=== PATIENT | male | born 1980 | race Caucasian/White ===

== ENCOUNTER 2020-06-18 07:50 | Inpatient (IN) ==
[2020-06-18] MEDS ORDERED: OPTIRAY 320 125ml IV ONE (08:15)
--- NOTE | 2020-06-18 08:28 | CT Scan Report ---
CT ANGIOGRAM OF THE CHEST CLINICAL HISTORY: Atypical chest pain. History of DVT. Possible pulmonary embolism COMPARISON STUDY: No previous studies for comparison. TECHNIQUE: Following the IV administration of 118 mL of Optiray-320, CT angiogram of the thorax was p erformed from the thoracic inlet to the lung bases utilizing the pulmonary embolus protocol. Images a re reviewed in the axial, sagittal, and coronal planes. IV contrast was administered without complica tion. MIP imaging was performed. A dose lowering technique was utilized adhering to the principles o f ALARA. CT DOSE: 690.04 mGy.cm FINDINGS: No pathologically enlarged axillary mediastinal or hilar lymph nodes were visualized. There was no evidence of thoracic aortic dilatation. There are no definite pulmonary artery filling defects to indicate acute pulmonary embolism. Evaluati on of the left lower lobe pulmonary artery branches are moderately limited due to respiratory motion artifact. No pleural effusions are visualized. There was no evidence of focal pulmonary consolidation. There are a few scattered granulomatous calci fications IMPRESSION: 1. Motion degraded study 2. No evidence of acute pulmonary embolism given the clinical limitations of the study 2. No evidence of acute parenchymal consolidation ACT 112: Negative or not required by law. Electronically signed by: Terrance Knott M.D. 06/18/2020 8:27 AM
[2020-06-18] MEDS ORDERED: SODIUM CHLORIDE 0.9% 1000ML 1,000 ML IV ONE ×2 (08:43→12:41)
[2020-06-18 08:44] LABS: Basophils # (auto) 0.02 K/uL (0-0.2); Basophils % (auto) 0.1 %; Eosinophils % (auto) 1.9 %; Hematocrit (blood only) 41.6 % (42-52); Hemoglobin 13.5 g/dL (14.0-18.0); Immature Granulocytes # (auto) 0.08 K/uL (0.00-0.02); Immature Granulocytes % (auto) 0.4 %; Lymphocytes % (auto) 8.2 %; Mean Corpuscular Hgb Conc 32.5 g/dL (32-36); Mean Corpuscular Volume 86.3 fL (80-100); Mean Platelet Volume 10.1 fL (7.4-10.4); Monocytes # (auto) 0.97 K/uL (0.11-0.59); Monocytes % (auto) 4.7 %; Neutrophils # (auto) 17.47 K/uL (1.4-6.5); Neutrophils % (auto) 84.7 %; Platelet Count 372 K/uL (130-400); RDW Coefficient of Variation 14.3 % (11.5-14.5); RDW Standard Deviation 44.7 fL (36.4-46.3); Red Blood Count 4.82 M/uL (4.7-6.1); White Blood Count 20.64 K/uL (4.8-10.8)
[2020-06-18 08:48] LABS: iSTAT Creatinine 2.2 mg/dl (0.6-1.3); iSTAT Ionized Calcium 1.21 mmol/l (1.12-1.32); iSTAT Potassium 4.3 mmol/L (3.3-5.0)
[2020-06-18 08:58] LABS: INR 1.1 (0.9-1.1); Partial Thromboplastin Ratio 1.2; Partial Thromboplastin Time 32.9 Seconds (21.0-31.0); Prothrombin Time 11.8 Seconds (9.0-12.0)
--- NOTE | 2020-06-18 09:24 | Ultrasound Report ---
US venous doppler LE LT CLINICAL HISTORY: Left leg pain. Chest pain. CT angiography the chest limited due to motion artifact COMPARISON STUDY: No previous studies for comparison. FINDINGS: There is extensive left lower extremity DVT extending from the common femoral vein to the c zeke. IMPRESSION: Extensive left lower extremity DVT extending from the common femoral vein to the proximal calf veins. ACT 112: Negative or not required by law. Electronically signed by: Terrance Knott M.D. 06/18/2020 9:23 AM
[2020-06-18 09:27] LABS: Alanine Aminotransferase 14 U/L (12-78); Albumin Level 3.8 gm/dl (3.4-5.0); Aspartate Aminotransferase 14 U/L (15-37); BUN Creatinine Ratio 9.3 (10-20); Blood Urea Nitrogen 21 mg/dl (7-18); Carbon Dioxide 24 mmol/L (21-32); Chloride 101 mmol/L (98-107); Creatinine Clr Calc Pharmacy 56.4 ml/min; Est GFR (African American) 41.9; Est GFR (Non-African American) 36.1; Glucose 118 mg/dl (70-99); Magnesium 1.9 mg/dl (1.8-2.4); Potassium 4.2 mmol/L (3.5-5.1); Sodium 138 mmol/L (136-145)
[2020-06-18 09:31] LABS: Albumin Globulin Ratio 0.8 (0.9-2); Alkaline Phosphatase 92 U/L (45-117); Bilirubin,Total 0.7 mg/dl (0.2-1); Total Protein 8.8 gm/dl (6.4-8.2); Troponin I < 0.015 ng/ml (0-0.045)
[2020-06-18] MEDS ORDERED: HEPARIN SOD 5,000 UNIT/0.5 ML VIAL ONE (10:25)
[2020-06-18] MEDS ORDERED: HEPARIN 25000 UNIT/500 ML D5W IV ONE (10:25)
[2020-06-18] MEDS ORDERED: DAPTOMYCIN CONSULT ACTIVE PRN (10:33)
--- NOTE | 2020-06-18 10:55 | Consultation ---
Date of Consultation June 18, 2020 Assessment & Plan (1) Deep vein thrombosis (DVT) of left lower extremity: (2) SIRS (systemic inflammatory response syndrome): (3) Lactic acidosis: (4) Acute renal failure superimposed on stage 3 chronic kidney disease: (5) C. difficile colitis: This is a 39 yr old M who has a significant PMN of renal agenesis, hx of glomerulonephritis with ckd-3 baseline cr 1.6-1.7 followed by [facility] nephrology, gout, JOHN, hx of DVT at age 15 who presents to ED 2/2 to worsened LLE pain with concern for DVT x 2 days. Patient with evidence of extensive left lower extremity DVT extending from common femoral vein to tibial veins. Pt with prior hx of dvt (RLE age 15). Prior coag panel work up negative. Exam reveals dusky LLE with cool/mottled LLE. Case was discussed with brewmaster Dr. Gibson who peripherally evaluated images concerning for complete occlusion recommending urgent transfer to tertiary facility for thrombectomy. Clotting disorder panel ordered and IV heparin initiated. Patient does meet SIRS criteria on evaluation due to hypotension, tachycardia and leukocytosis upon arrival. Patient completed course of oral vancomycin 125 mg 4 times daily on 06/17 for outpatient diagnosis of C. difficile. He does continue to have lower abdominal cramping with 2 loose bowel movements daily. Infection is not totally ruled out but SIRS likely in setting of extensive DVT. PE was ruled out via CTA. Patient did undergo CTA in ER prior to renal function evaluation. Creatinine worse than baseline at 2.2 today (baseline 1.6-1.7). IV fluid ordered for hydration. Other than more sedentary due to underlying C. difficile and working from home, patient has no clear etiology for DVT and this will need to be further worked up. He has no family history of clotting disorder. Placed on broad-spectrum IV antibiotics until infection ruled out. Blood cultures are pending. Obtain CT abd/pelvis and repeat Lactic acid Case was discussed with family at bedside. Case also discussed with ER physician Dr. De Souza who will arrange for transfer. Supervising Physician Co-Signing Physician Notes Attending addendum: Patient seen and examined, care coordinated with Lisa Guerrier PA-C Labs and images reviewed This is a 39-year-old male, presented to ER with severe left lower extremity pain, started 2 days back worse this morning, associated with shortness of breath dizzy spell, diaphoresis, presyncope Patient denies of any recent immobility, no long duration trip, Fairly active at baseline CTA of chest shows no evidence of pulmonary embolism Lower extremity Doppler: Extensive left lower extremity DVT with complete occlusion of left femoral artery to the left calf veins. Patient was hypotensive, tachycardic in the ER, required IV fluid bolus Physical exam: As per Cele Guerrier, PSC Hypercoagulable work-up was sent: Patient had a prior history of DVT on right leg, not on any anticoagulation at present other than 81 mg daily aspirin Discussed with on-call interventional cardiology: Dr. Torito Gibson: Receiving a lower extremity Doppler image, he recommends transfer to tertiary care for emergent thrombectomy, high risk for gangrene,/loss of limb without emergent treatment ER physician Dr. De Souza updated, Patient is being transferred to tertiary care, [facility] Ximena Justice MD History of Present Illness Requesting Physician: Dr. De Souza Reason for Consultation: Admission to hospital Attending Physician: Dr. Justice History of Present Illness This is a 39 yr old M who has a significant PMN of renal agenesis, hx of glomerulonephritis with ckd-3 baseline cr 1.6-1.7 followed by [facility] nephrology, gout, JOHN, hx of DVT at age 15 who presents to ED 2/2 to worsened LLE pain with concern for DVT x 2 days. Of significance pt recently dx and tx for cdiff colitis on 06/06/20. He has been experiencing lower abdominal cramping, waxes and wanes, 6/10 at worst, & described as "ache." He was seen and evaluated by PCP who recommended GI evaluation. He underwent EGD and colonoscopy which revealed findings consistent with GERD. Cultures were positive for C. difficile. He started treatment on 06/06/2020 with oral vancomycin 125 mg 4 times daily and completed course yesterday 06/17/2020. He states during treatment with vancomycin his symptoms began to improve, until Thursday after he ate a heavy garlic meal. He then developed return of bilateral lower abdominal cramping, waxes and wanes, intermittent, nothing in particular makes worse and resolved on own. He notes on Thursday he began developing some weakness to his left lower extremity which he attributed to his recent C. difficile illness. Weakness turned into discomfort which began progressing to left calf. When he woke up this morning he was sweaty, diaphoretic, ill feeling, short of breath and significant left lower extremity pain with inability to bear weight. He proceeded to seek ED for further evaluation. According to ED provider upon initial arrival patient was hypotensive and tachycardic and was sent immediately to CTA to rule out PE. CTA was negative however left lower extremity venous Doppler reveals extensive DVT extending from common femoral vein to proximal calf vein. Further lab work-up revealed lactic acidosis at 2.5, leukocytosis 20.64k, H&H 13.5 and 41.6, AG 13, BUN 21, creatinine 2.2, procalcitonin 0.15. Prior to my evaluation pt did receive 1L IVF. is at bedside. Allergies Allergy/AdvReac Type Severity Reaction Status Date / Time NSAIDS (Non-Steroidal AdvReac Severe CANNOT Unverified 06/18/20 08:53 Anti-Inflamma TAKE DUE TO KIDNEY PROBLEMS Home Medications Home Medications Medication Instructions Recorded Confirmed Type allopurinol 300 mg PO QAM 06/18/20 06/18/20 History aspirin 81 mg PO QAM 06/18/20 06/18/20 History diltiazem HCl 120 mg PO QAM 06/18/20 06/18/20 History loratadine 10 mg PO QAM 06/18/20 06/18/20 History Patient History Medical History (Updated 06/18/20 @ 10:57 by Linda Sanchez PA-C) Allergic rhinitis CKD (chronic kidney disease) stage 3, GFR 30-59 ml/min GERD (gastroesophageal reflux disease) Gout History of DVT (deep vein thrombosis) age 15, unprovoked History of glomerulonephritis JOHN (obstructive sleep apnea) Renal agenesis, bilateral Surgical History (Updated 06/18/20 @ 10:30 by Linda Sanchez PA-C) History of colonoscopy History of esophagogastroduodenoscopy (EGD) History of tonsillectomy and adenoidectomy Family History Mother Asthma Father Hypertension Grandfather CKD (chronic kidney disease) on HD Social History (Updated 06/18/20 @ 10:51 by Linda Sanchez PA-C) Smoking Status: Never smoker Hx Alcohol Use: Yes Alcohol Intake Frequency: Monthly or Less Alcohol Intake Frequency Comment: rare Preferred Language: Yi Communication Ability: Effective marital status: Current Living Situation: Spouse current occupational status: employed Feels Safe at Home: Yes Review of Systems Review of Systems: All systems reviewed & are unremarkable except as noted in HPI & below Physical Exam Physical Exam: Constitutional: Pale, acutely ill appearing male, vitals as above, NAD, sitting up in bed, pleasant, conversing easily Head: Normocephalic, Atraumatic Eyes: PERRL, conjunctivae normal, anicteric sclerae ENMT: external ear and nose normal, oropharynx normal Neck: trachea midline, no thyromegaly normal visual inspection Respiratory: normal respiratory effort, lungs clear to auscultation, no wheeze, rales, rhonchi. Normal insp/exp effort, no accessory muscle use Cardiovascular: RRR, no murmur Vessels: no JVD or carotid bruit, LLE edematous, dusky, cyanotic with mottled appearance, cool, diminished pedal pulse, RLE with compression sleeve to calf Chest: normal inspection of chest Abdomen: normal bowel sounds, soft, tender to palpation b/l lower quadrants, no rebound/guarding or rigidity, no hepatosplenomegaly Musculoskeletal: no clubbing, active ROM to extremities x4 Skin: no rashes, warm and dry normal turgor Neurologic: PERRL, EOMI, accommodation nl, no face palsy, no dysarthria CN's II-XI intact bilaterally and moves all extremities Psychiatric: A+Ox3, euthymic affect Lymphatic: no cervical or axillary lymphadenopathy : deferred Results & Data ([facility]) Vital Signs (Past 12 Hours) Vital Signs Temp Pulse Pulse Resp BP BP Pulse Ox 06/18/20 10:33 95 H 20 114/74 98 06/18/20 08:49 87 22 115/72 97 06/18/20 08:15 100 06/18/20 07:54 36.3 C L 100 H 20 97/66 L 100 Laboratory Results Short CBC 06/18/20 06/18/20 06/18/20 Range/Units 08:15 08:15 08:52 WBC 20.64 H (4.8-10.8) K/uL Hgb 13.5 L (14.0-18.0) g/dL Hct 41.6 L (42-52) % Plt Count 372 (130-400) K/uL Creatinine 2.20 H (0.6-1.4) mg/dl Lactate 2.5 H* (0.4-2.0) mmol/L BMP 06/18/20 08:15 Sodium 138 Potassium 4.2 Chloride 101 Carbon Dioxide 24 BUN 21 H Creatinine 2.20 H Glucose 118 H Calcium 10.0 Cardiac Enzymes 06/18/20 Range/Units 08:15 Troponin I < 0.015 (0-0.045) ng/ml Liver Function 06/18/20 Range/Units 08:15 Total Bilirubin 0.7 (0.2-1) mg/dl AST 14 L (15-37) U/L ALT 14 (12-78) U/L Alkaline Phosphatase 92 (45-117) U/L Albumin 3.8 (3.4-5.0) gm/dl Diagnostic Findings Chest CTA: IMPRESSION: 1. Motion degraded study 2. No evidence of acute pulmonary embolism given the clinical limitations of the study 2. No evidence of acute parenchymal consolidation Venous doppler: IMPRESSION: Extensive left lower extremity DVT extending from the common femoral vein to the proximal calf veins. Medications Administered Discontinued Medications Heparin Sodium (Porcine) (Heparin Sod 5,000 Unit/0.5 Ml Vial) Confirm Administered Dose 10,000 units .ROUTE .STK-MED ONE Stop: 06/18/20 10:26 Last Admin: 06/18/20 10:28 Dose: 7,000 units Documented by: [id number] Cosigned by: [id number] Heparin Sodium/Dextrose (Heparin 53226 Unit/500 Ml D5w) Confirm Administered Dose 25,000 units IV .STK-MED ONE Stop: 06/18/20 10:26 Last Admin: 06/18/20 10:27 Dose: 32 ml Documented by: [id number] Cosigned by: [id number] Sodium Chloride (Nss 1000ml) 1,000 mls @ 999 mls/hr IV .Q1H1M ONE Stop: 06/18/20 09:43 Last Infusion: 06/18/20 09:50 Dose: 0 mls/hr Documented by: [id number] Admin: 06/18/20 08:50 Dose: 999 mls/hr Documented by: [id number] Ioversol (Optiray 320 125ml) 118 ml IV ONCE ONE Stop: 06/18/20 08:16 Last Admin: 06/18/20 08:15 Dose: 118 ml Documented by: [id number] ECG Rate (beats per minute): 85 Rhythm: normal sinus
[2020-06-18] MEDS ORDERED: DAPTOmycin 350 MG in SYRINGE 0 ML IV ONE (10:57)
[2020-06-18] MEDS ORDERED: HEPARIN SODIUM/DEXTROSE 25,000 UNITS/500 ML BAG IV SCH (11:00)
[2020-06-18] MEDS ORDERED: ACETAMINOPHEN 325 MG TAB PO PRN (11:00)
[2020-06-18] MEDS ORDERED: POLYETHYLENE (MIRALAX) 17 GM PACK PO PRN (11:00)
[2020-06-18] MEDS ORDERED: ONDANSETRON INJ 2 MG/ML 2 ML VIAL IV PRN (11:00)
[2020-06-18] MEDS ORDERED: MAGNESIUM HYDROXIDE SUSP 30 ML UDC PO PRN (11:00)
[2020-06-18] MEDS ORDERED: SODIUM CHLORIDE 0.9% 1000ML 1,000 ML IV SCH ×2 (11:00→16:00)
--- NOTE | 2020-06-18 11:19 | CT Scan Report ---
ABDOMEN AND PELVIS CT WITHOUT CONTRAST CT DOSE: 1130.52 mGycm HISTORY: Acute low back pain. back pain /ext DVT on lower ext /r/o malignancy TECHNIQUE: Multiaxial CT images of the abdomen and pelvis were performed without contrast. A dose lo wering technique was utilized adhering to the principles of ALARA. COMPARISON STUDY: Duplex venous Doppler study and CTA chest of same day FINDINGS: The imaged lung bases are generally clear. 5 mm subpleural solid nodule involves the lateral segment right middle lobe. No pneumatosis or pneumoperitoneum. Imaged inferior cardiac chambers are unremarka ble. Limited evaluation of the solid abdominal organs without the use of IV contrast. The spleen, pastrana creas and right adrenal gland are unremarkable. Minimal calcifications of the left adrenal gland sugg ests prior hemorrhage or infection. Mild retained contrast in the left renal collecting system. There are a few cortical renal sinus cyst s of the left kidney. Partially decompressed or bladder contains contrast. Unremarkable prostate. Mar kedly atrophic right kidney. Calcification within a diminutive IVC. Numerous retroperitoneal collater als are noted with additional collateral vessels of the anterior abdominal wall. Collateral vessels v ersus retroperitoneal adenopathy measures up to 3.0 x 1.9 cm on image 268 series 3. No bowel obstruction. Moderate fecal retention. Wall thickening of the terminal ileum. The appendix i s dilated measuring up to 2.4 cm and is markedly inflamed. Phlegmonous change with reactive edema is noted within the abdominal right lower quadrant overall measuring up to approximately 5.2 cm. Unremar kable soft tissues. The bones appear intact. IMPRESSION: 1. Markedly inflamed appendix with inflammation/phlegmon within the abdominal right lower quadrant. T here is no pneumoperitoneum or drainable fluid collection identified. Findings are concerning for acu te appendicitis with possible rupture. An appendiceal neoplasm could have a similar appearance. Surgi regine consultation is needed. 2. Wall thickening of the distal ileum is likely reactive. 3. 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 Additionally, there is suggestion of indeterminate retroperitoneal adenopathy. Attention at follow-up recommended. 4. Markedly atrophic right kidney. 5. Moderate fecal retention. ACT 112: Negative or not required by law. The above report was generated using voice recognition software. It may contain grammatical, syntax o r spelling errors. Electronically signed by: Roscoe Smith M.D. 06/18/2020 11:18 AM
[2020-06-18] MEDS ORDERED: PIPERACILLIN/TAZOBACTAM 4.5 GM/120 ML BAG IV ONE (11:24)
[2020-06-18] MEDS ORDERED: PIPERACILL/TAZOBAC CONSULT ACTIVE PRN ×2 (11:24→15:33)
[2020-06-18 12:06] LABS: Appearance Urine Clear (Clear); Bacteria Urine Automated Negative (Negative); Bilirubin Urine Negative (Negative); Blood Urine Trace (Negative); Color Urine Yellow; Epithelial Cell Urine Auto 20-30 /lpf (0-5); Glucose Urine UA Negative (Negative); Ketones Urine Trace (Negative); Leukocyte Esterase Urine Negative (Negative); Nitrite Urine Negative (Negative); Protein Urine 1+ (Negative); RBC Urine Automated 0-4 /hpf (0-4); Specific Gravity Urine > 1.045 (1.000-1.030); Urobilinogen Urine Negative (Negative)
[2020-06-18] MEDS ORDERED: HYDROmorphone INJ 1 MG/ML SYRINGE IV PRN (12:29)
[2020-06-18] MEDS ORDERED: ONDANSETRON INJ 2 MG/ML 2 ML VIAL IV STA (12:29)
--- NOTE | 2020-06-18 12:29 | Surgery Consultation ---
Date of Consultation June 18, 2020 Assessment & Plan (1) Appendicitis: Patient does have evidence of appendicitis with phlegmon-surrounding inflammation of the cecum and small bowel No evidence of abscess or free air-I do not think he would require emergent operation for this and most likely Would benefit from IV antibiotic treatment and delayed appendectomy -Retroperitoneal lymphadenopathy could be from the inflammation or neoplasm, also severe pelvic venous disease His DVT in the left lower extremity is causing significant swelling- could be at risk for compartment syndrome if not treated Aggressively-our coin machine mechanic has suggested transfer to a tertiary care center His history of DVT suggests an underlying hypercoagulable situation He also has a history of recent C. difficile which apparently is ongoing in its treatment with p.o. Vanco I agree with the medical team and hoisting machine operator that the patient would benefit from a tertiary care center-he will require Multidisciplinary help with his problems History of Present Illness History of Present Illness 39-year-old male presenting the emergency room with severe left lower extremity pain and swelling Found to have extensive DVT He also has findings on his CAT scan of severe right lower quadrant inflammation and phlegmon-which is likely appendicitis Even possible neoplasm with perforation-there is no abscess or free air He did have a recent colonoscopy within the last 2 weeks which was negative as well as an upper endoscopy showing some reflux He has recently been treated for C. difficile colitis with p.o. Vanco He has a history of right lower extremity DVT 24 years prior to this Currently the patient is not having significant abdominal pain, pain is his left leg and back area Allergies Allergy/AdvReac Type Severity Reaction Status Date / Time NSAIDS (Non-Steroidal AdvReac Severe CANNOT Unverified 06/18/20 08:53 Anti-Inflamma TAKE DUE TO KIDNEY PROBLEMS Home Medications Home Medications Medication Instructions Recorded Confirmed Type allopurinol 300 mg PO QAM 06/18/20 06/18/20 History aspirin 81 mg PO QAM 06/18/20 06/18/20 History diltiazem HCl 120 mg PO QAM 06/18/20 06/18/20 History loratadine 10 mg PO QAM 06/18/20 06/18/20 History Patient History Medical History (Updated 06/18/20 @ 12:31 by Jorge Nance MD, FACS) Allergic rhinitis CKD (chronic kidney disease) stage 3, GFR 30-59 ml/min GERD (gastroesophageal reflux disease) Gout History of DVT (deep vein thrombosis) age 15, unprovoked History of glomerulonephritis JOHN (obstructive sleep apnea) Renal agenesis, bilateral Surgical History (Updated 06/18/20 @ 10:30 by Linda Sanchez PA-C) History of colonoscopy History of esophagogastroduodenoscopy (EGD) History of tonsillectomy and adenoidectomy Family History Mother Asthma Father Hypertension Grandfather CKD (chronic kidney disease) on HD Social History (Updated 06/18/20 @ 10:51 by Linda Sanchez PA-C) Smoking Status: Never smoker Hx Alcohol Use: Yes Alcohol Intake Frequency: Monthly or Less Alcohol Intake Frequency Comment: rare Preferred Language: Ghanaian Communication Ability: Effective marital status: Current Living Situation: Spouse current occupational status: employed Feels Safe at Home: Yes Review of Systems Review of Systems: All systems reviewed & are unremarkable except as noted in HPI & below Physical Exam Constitutional: well developed and well nourished; no acute distress Eyes: + anicteric sclerae Respiratory: normal respiratory effort; no respiratory distress Cardiovascular: Rate/Rhythm: + tachycardic Gastrointestinal (Abdomen): His abdomen is soft he has minimal tenderness in the right lower quadrant to deep palpation He does not have distention or peritonitis diffusely Musculoskeletal: His left lower extremity is mildly cyanotic and swollen down to the foot Skin: + dry skin; no rashes Neurologic: awake Psychiatric: Orientation: alert Results & Data ([facility]) Vital Signs (Past 12 Hours) Vital Signs Temp Pulse Pulse Resp BP BP Pulse Ox 06/18/20 10:33 95 H 20 114/74 98 06/18/20 08:49 87 22 115/72 97 06/18/20 08:15 100 06/18/20 07:54 36.3 C L 100 H 20 97/66 L 100 I did review his CAT scan PG Care Time/CCT Total # of Minutes Spent Total Time Spent with Patient: Total time spent is greater than 50% in coordination of care (as documented) at patient's floor/unit and/or counseling patient: Coding Level of Care Code 73340 Office/OBS Consult Lvl 4 Diagnoses Appendicitis K37
[2020-06-18] MEDS ORDERED: ICU PROTOCOL FOR HYPERGLYCEMIA PRN ×2 (12:57→15:33)
--- NOTE | 2020-06-18 13:03 | Emergency Department Note ---
History of Present Illness General Chief complaint: Leg Injury/Pain Stated complaint: LEG PAIN Time Seen by Provider: 06/18/20 08:03 Source: patient, RN notes reviewed and old records reviewed Mode of arrival: ambulatory Limitations: no limitations History of Present Illness Provider complaint: Leg pain, back pain Onset (ago): day(s) 1 Location: lower extremity and left Radiation: back Severity: moderate Pain Consistency: + intermittent Maximum Pain Intensity: 8 Current Pain Intensity: 8 Quality: + aching Relieved By: + immobilization Exacerbated By: + movement Associated symptoms: + syncope (x2) and + other (diarrhea) Treatments prior to arrival: none This is a 39-year-old male who presents emergency department complaining of low back pain as well as left leg pain. The patient has a history of DVTs and had been on anticoagulation for approximately 6 months. The patient relates this is approximately 3 years ago. He reports decreased movement over the past 2 weeks due to a C. difficile infection. He reports he just finished his antibiotic yesterday. He reports left leg pain started approximately 3 days ago. He describes the pain as a burning sensation. He reports movement makes the pain worse however immobilization makes the pain better. Home Medications Home Medications Medication Instructions Recorded Confirmed Type allopurinol 300 mg PO QAM 06/18/20 06/18/20 History aspirin 81 mg PO QAM 06/18/20 06/18/20 History diltiazem HCl 120 mg PO QAM 06/18/20 06/18/20 History loratadine 10 mg PO QAM 06/18/20 06/18/20 History Allergies Allergy/AdvReac Type Severity Reaction Status Date / Time NSAIDS (Non-Steroidal AdvReac Severe CANNOT Unverified 06/18/20 08:53 Anti-Inflamma TAKE DUE TO KIDNEY PROBLEMS Past Med/Surg History Medical History Allergic rhinitis CKD (chronic kidney disease) stage 3, GFR 30-59 ml/min GERD (gastroesophageal reflux disease) Gout History of DVT (deep vein thrombosis) age 15, unprovoked History of glomerulonephritis JOHN (obstructive sleep apnea) Renal agenesis, bilateral Surgical History History of colonoscopy History of esophagogastroduodenoscopy (EGD) History of tonsillectomy and adenoidectomy Family History Mother Asthma Father Hypertension Grandfather CKD (chronic kidney disease) on HD Social History Smoking Status: Never smoker Hx Alcohol Use: Yes Alcohol Intake Frequency: Monthly or Less Alcohol Intake Frequency Comment: rare Preferred Language: Latvian Communication Ability: Effective marital status: Current Living Situation: Spouse current occupational status: employed Feels Safe at Home: Yes Review of Systems A total of 10 systems reviewed and were otherwise negative Physical Exam Vital Signs Vital Signs - 24 hr 06/18/20 07:54 06/18/20 08:15 06/18/20 08:49 Temperature 36.3 C L Temperature Source Oral Pulse Rate 100 H Pulse Rate [Left Finger] 87 Respiratory Rate 20 22 Respiratory Effort / Characteristics Non-Labored Blood Pressure 97/66 L Blood Pressure [Left Arm] 115/72 Blood Pressure Mean 76 Blood Pressure Mean [Left Arm] 86 Pulse Oximetry 100 100 97 Oxygen Delivery Method Room Air Room Air Room Air Sepsis Recent Fever Within 48 Hours No Sepsis New/Unexplained Change in Mental Status N/A Sepsis Action Taken by Nursing No Action Required 06/18/20 10:33 06/18/20 12:24 06/18/20 14:14 Temperature Temperature Source Pulse Rate Pulse Rate [Left Finger] 95 H 93 H 95 H Respiratory Rate 20 22 20 Respiratory Effort / Characteristics Blood Pressure Blood Pressure [Left Arm] 114/74 124/83 122/77 Blood Pressure Mean Blood Pressure Mean [Left Arm] 87 96 92 Pulse Oximetry 98 99 99 Oxygen Delivery Method Room Air Room Air Room Air Sepsis Recent Fever Within 48 Hours Sepsis New/Unexplained Change in Mental Status Sepsis Action Taken by Nursing VITAL SIGNS - Vital signs and nursing notes were reviewed. GENERAL - 39-year-old male appearing stated age who is Pale in appearnce. Co mmunicates well with provider and answers questions appropriately. SKIN - Without rashes. HEAD - NC/AT. EYES - PERRL with EOMI bilaterally. Sclera anicteric. Palpebral conjunctiva pink and moist with no injection noted. EARS - No deformities of external structures noted on gross examination bila terally. No pain elicited with palpation of the tragus bilaterally. External auditory canals without discharge or otorrhea. Tympanic membranes pearly louise without retraction or bulging. No fluid or purulent material visualized behind the TM. Handle of malleus, umbo, cone of light, pars tensa/flaccid all easily visualized. NOSE - Midline and without cyanosis. No epistaxis or purulent drainage noted. Septum midline without deviation or septal hematoma noted. MOUTH/OROPHARYNX - Without perioral cyanosis. Buccal mucosa pink and moist and without leukoplakia. Tongue midline with equal elevation of palate bilaterally. No tonsillar hypertrophy, erythema, or exudates noted. dentition noted. NECK - Neck with FROM. Supple to palpation. lymphadenopathy noted. No nuchal rigidity. LUNGS - Chest wall symmetric without accessory muscle use, intercostals retractions, or central cyanosis. Normal vesicular breath sounds CTA B/L. No wheezes, rales, or rhonchi appreciated. CARDIAC - RRR with S1/S2. No murmur, rubs, or gallops appreciated. ABDOMEN - Abdominal contour without pulsations or visible masses. BS normoactive all four quadrants. No tenderness, palpable masses, hepatosplenomegaly, or ascites noted. EXTREMITIES - LLE: discolored, cool to touch +3/5 radial, posterior tibial, and dorsalis pedis pulses palpated throughout. +5/5 strength noted in UE/LE bilaterally. NEUROLOGIC - Cranial nerves II through XII grossly intact. Sensory intact to light touch throughout. Patellar reflexes +2/4. PSYCH - A&Ox3 and cooperates fully with examiner. Pt is very pleasant and interacts well with examiner. Course Administered Medications Heparin Sodium/Dextrose (Heparin Iv Standard With Bolus) 1 ea IV Q15M [facility]; Protocol Stop: 07/18/20 10:59 Last Admin: 06/18/20 11:11 Dose: Not Given Documented by: [id number] Hydromorphone HCl (Hydromorphone Inj 1 Mg/Ml Syringe) 1 mg IV Q15M PRN PRN Reason: Pain Stop: 07/02/20 12:28 Last Admin: 06/18/20 12:42 Dose: 1 mg Documented by: [id number] Heparin Sodium/Dextrose (Heparin Sodium/Dextrose) 25,000 units in 500 mls @ 0.02 mls/hr IV .Q24H [facility]; Protocol Stop: 07/18/20 10:59 Last Admin: 06/18/20 11:51 Dose: Not Given Documented by: [id number] Discontinued Medications Heparin Sodium (Porcine) (Heparin Sod 5,000 Unit/0.5 Ml Vial) Confirm Administered Dose 10,000 units .ROUTE .STK-MED ONE Stop: 06/18/20 10:26 Last Admin: 06/18/20 10:28 Dose: 7,000 units Documented by: [id number] Cosigned by: [id number] Heparin Sodium/Dextrose (Heparin 67179 Unit/500 Ml D5w) Confirm Administered Dose 25,000 units IV .STK-MED ONE Stop: 06/18/20 10:26 Last Admin: 06/18/20 10:27 Dose: 32 ml Documented by: [id number] Cosigned by: [id number] Sodium Chloride (Nss 1000ml) 1,000 mls @ 999 mls/hr IV .Q1H1M ONE Stop: 06/18/20 09:43 Last Infusion: 06/18/20 09:50 Dose: 0 mls/hr Documented by: [id number] Admin: 06/18/20 08:50 Dose: 999 mls/hr Documented by: [id number] Daptomycin 350 mg/ Syringe 7 mls @ 3.5 mls/min IV NOW ONE; Protocol Stop: 06/18/20 10:58 Last Admin: 06/18/20 11:11 Dose: 3.5 mls/min Documented by: [id number] Piperacillin Sod/Tazobactam Sod (Zosyn) 4.5 gm in 120 mls @ 240 mls/hr IV NOW ONE Stop: 06/18/20 11:53 Last Infusion: 06/18/20 12:26 Dose: 0 mls/hr Documented by: [id number] Admin: 06/18/20 11:54 Dose: 240 mls/hr Documented by: [id number] Sodium Chloride (Nss 1000ml) 1,000 mls @ 999 mls/hr IV .Q1H1M ONE Stop: 06/18/20 13:41 Last Infusion: 06/18/20 14:17 Dose: 0 mls/hr Documented by: [id number] Admin: 06/18/20 12:53 Dose: 999 mls/hr Documented by: [id number] Ioversol (Optiray 320 125ml) 118 ml IV ONCE ONE Stop: 06/18/20 08:16 Last Admin: 06/18/20 08:15 Dose: 118 ml Documented by: [id number] Ondansetron HCl (Ondansetron Inj 2 Mg/Ml 2 Ml Vial) 4 mg IV NOW STA Stop: 06/18/20 12:30 Last Admin: 06/18/20 12:43 Dose: 4 mg Documented by: [id number] Critical Care Time I have personally spent greater than 90 minutes of critical care time in the direct management of this patient. This includes bedside care, interpretation of diagnostic studies, and testing, discussion with consultants, patient, and family members, and other required patient management activities. This 90 minutes is in excess of all separately billable procedures. Medical Decision Making Differential Diagnosis Foreign body, fracture, dislocation, joint compromise, infection, soft tissue injury, tendon injury, vascular compromise, compartment syndrome, as well as other pathologies. Medical Records Attestation: I reviewed the patient's medical records. Home Medications Current Medication List: was personally reviewed by me Laboratory Data Attestation: I reviewed the patient's lab results. Result diagrams: 06/18/20 08:15 06/18/20 08:15 Lab Results 06/18/20 06/18/20 06/18/20 Range/Units 08:07 08:15 08:15 WBC 20.64 H (4.8-10.8) K/uL RBC 4.82 (4.7-6.1) M/uL Hgb 13.5 L (14.0-18.0) g/dL POC Hgb (14.0-18.0) g/dl Hct 41.6 L (42-52) % POC Hct (42-52) % MCV 86.3 (80-100) fL MCH 28.0 (25-34) pg MCHC 32.5 (32-36) g/dL RDW Std Deviation 44.7 (36.4-46.3) fL RDW Coeff of Stevan 14.3 (11.5-14.5) % Plt Count 372 (130-400) K/uL MPV 10.1 (7.4-10.4) fL Immature Gran % (Auto) 0.4 % Neut % (Auto) 84.7 % Lymph % (Auto) 8.2 % [place] % (Auto) 4.7 % Eos % (Auto) 1.9 % Baso % (Auto) 0.1 % Neut # (Auto) 17.47 H (1.4-6.5) K/uL Lymph # (Auto) 1.70 (1.2-3.4) K/uL [place] # (Auto) 0.97 H (0.11-0.59) K/uL Eos # (Auto) 0.40 (0-0.5) K/uL Baso # (Auto) 0.02 (0-0.2) K/uL Immature Gran # (Auto) 0.08 H (0.00-0.02) K/uL PT (9.0-12.0) Seconds INR (0.9-1.1) APTT (21.0-31.0) Seconds PTT Ratio POC Sodium (135-144) mmol/L Sodium (136-145) mmol/L POC Potassium (3.3-5.0) mmol/L Potassium (3.5-5.1) mmol/L POC Chloride (101-112) mmol/L Chloride (98-107) mmol/L Carbon Dioxide (21-32) mmol/L POC Total CO2 (24-31) mmol/L Anion Gap (3-11) POC Anion Gap (16-25) mmol/L POC BUN (7-18) mg/dl BUN (7-18) mg/dl Creatinine (0.6-1.4) mg/dl POC Creatinine (0.6-1.3) mg/dl Est Cr Clr Drug Dosing ml/min Est GFR ( Amer) Est GFR (Non-Af Amer) BUN/Creatinine Ratio (10-20) Glucose (70-99) mg/dl POC Glucose (other) (70-99) mg/dl Lactate (0.4-2.0) mmol/L Calcium (8.5-10.1) mg/dl POC Ioniz Calcium Leeann (1.12-1.32) mmol/l Magnesium (1.8-2.4) mg/dl Total Bilirubin (0.2-1) mg/dl AST (15-37) U/L ALT (12-78) U/L Alkaline Phosphatase (45-117) U/L Troponin I (0-0.045) ng/ml Total Protein (6.4-8.2) gm/dl Albumin (3.4-5.0) gm/dl Globulin (2.5-4.0) gm/dl Albumin/Globulin Ratio (0.9-2) Procalcitonin 0.15 (0-0.5) ng/ml Urine Color Urine Appearance (Clear) Urine pH (4.5-7.5) Ur Specific [place] (1.000-1.030) Urine Protein (Negative) Urine Glucose (UA) (Negative) Urine Ketones (Negative) Urine Blood (Negative) Urine Nitrite (Negative) Urine Bilirubin (Negative) Urine Urobilinogen (Negative) Ur Leukocyte Esterase (Negative) Urine WBC (Auto) (0-5) /hpf Urine RBC (Auto) (0-4) /hpf U Hyaline Cast (Auto) (0-5) /lpf U Epithel Cells (Auto) (0-5) /lpf Urine Bacteria (Auto) (Negative) Blood Type O Positive Antibody Screen NEGATIVE 06/18/20 06/18/20 06/18/20 Range/Units 08:15 08:15 08:36 WBC (4.8-10.8) K/uL RBC (4.7-6.1) M/uL Hgb (14.0-18.0) g/dL POC Hgb 15.0 (14.0-18.0) g/dl Hct (42-52) % POC Hct 44 (42-52) % MCV (80-100) fL MCH (25-34) pg MCHC (32-36) g/dL RDW Std Deviation (36.4-46.3) fL RDW Coeff of Stevan (11.5-14.5) % Plt Count (130-400) K/uL MPV (7.4-10.4) fL Immature Gran % (Auto) % Neut % (Auto) % Lymph % (Auto) % [place] % (Auto) % Eos % (Auto) % Baso % (Auto) % Neut # (Auto) (1.4-6.5) K/uL Lymph # (Auto) (1.2-3.4) K/uL [place] # (Auto) (0.11-0.59) K/uL Eos # (Auto) (0-0.5) K/uL Baso # (Auto) (0-0.2) K/uL Immature Gran # (Auto) (0.00-0.02) K/uL PT 11.8 (9.0-12.0) Seconds INR 1.1 (0.9-1.1) APTT 32.9 H (21.0-31.0) Seconds PTT Ratio 1.2 POC Sodium 138 (135-144) mmol/L Sodium 138 (136-145) mmol/L POC Potassium 4.3 (3.3-5.0) mmol/L Potassium 4.2 (3.5-5.1) mmol/L POC Chloride 100 L (101-112) mmol/L Chloride 101 (98-107) mmol/L Carbon Dioxide 24 (21-32) mmol/L POC Total CO2 24 (24-31) mmol/L Anion Gap 13.0 H (3-11) POC Anion Gap 19.0 (16-25) mmol/L POC BUN 21 H (7-18) mg/dl BUN 21 H (7-18) mg/dl Creatinine 2.20 H (0.6-1.4) mg/dl POC Creatinine 2.2 H (0.6-1.3) mg/dl Est Cr Clr Drug Dosing 56.4 ml/min Est GFR ( Amer) 41.9 Est GFR (Non-Af Amer) 36.1 BUN/Creatinine Ratio 9.3 L (10-20) Glucose 118 H (70-99) mg/dl POC Glucose (other) 119 H (70-99) mg/dl Lactate (0.4-2.0) mmol/L Calcium 10.0 (8.5-10.1) mg/dl POC Ioniz Calcium Leeann 1.21 (1.12-1.32) mmol/l Magnesium 1.9 (1.8-2.4) mg/dl Total Bilirubin 0.7 (0.2-1) mg/dl AST 14 L (15-37) U/L ALT 14 (12-78) U/L Alkaline Phosphatase 92 (45-117) U/L Troponin I < 0.015 (0-0.045) ng/ml Total Protein 8.8 H (6.4-8.2) gm/dl Albumin 3.8 (3.4-5.0) gm/dl Globulin 5.0 H (2.5-4.0) gm/dl Albumin/Globulin Ratio 0.8 L (0.9-2) Procalcitonin (0-0.5) ng/ml Urine Color Urine Appearance (Clear) Urine pH (4.5-7.5) Ur Specific [place] (1.000-1.030) Urine Protein (Negative) Urine Glucose (UA) (Negative) Urine Ketones (Negative) Urine Blood (Negative) Urine Nitrite (Negative) Urine Bilirubin (Negative) Urine Urobilinogen (Negative) Ur Leukocyte Esterase (Negative) Urine WBC (Auto) (0-5) /hpf Urine RBC (Auto) (0-4) /hpf U Hyaline Cast (Auto) (0-5) /lpf U Epithel Cells (Auto) (0-5) /lpf Urine Bacteria (Auto) (Negative) Blood Type Antibody Screen 06/18/20 06/18/20 06/18/20 Range/Units 08:52 11:19 11:55 WBC (4.8-10.8) K/uL RBC (4.7-6.1) M/uL Hgb (14.0-18.0) g/dL POC Hgb (14.0-18.0) g/dl Hct (42-52) % POC Hct (42-52) % MCV (80-100) fL MCH (25-34) pg MCHC (32-36) g/dL RDW Std Deviation (36.4-46.3) fL RDW Coeff of Stevan (11.5-14.5) % Plt Count (130-400) K/uL MPV (7.4-10.4) fL Immature Gran % (Auto) % Neut % (Auto) % Lymph % (Auto) % [place] % (Auto) % Eos % (Auto) % Baso % (Auto) % Neut # (Auto) (1.4-6.5) K/uL Lymph # (Auto) (1.2-3.4) K/uL [place] # (Auto) (0.11-0.59) K/uL Eos # (Auto) (0-0.5) K/uL Baso # (Auto) (0-0.2) K/uL Immature Gran # (Auto) (0.00-0.02) K/uL PT (9.0-12.0) Seconds INR (0.9-1.1) APTT (21.0-31.0) Seconds PTT Ratio POC Sodium (135-144) mmol/L Sodium (136-145) mmol/L POC Potassium (3.3-5.0) mmol/L Potassium (3.5-5.1) mmol/L POC Chloride (101-112) mmol/L Chloride (98-107) mmol/L Carbon Dioxide (21-32) mmol/L POC Total CO2 (24-31) mmol/L Anion Gap (3-11) POC Anion Gap (16-25) mmol/L POC BUN (7-18) mg/dl BUN (7-18) mg/dl Creatinine (0.6-1.4) mg/dl POC Creatinine (0.6-1.3) mg/dl Est Cr Clr Drug Dosing ml/min Est GFR ( Amer) Est GFR (Non-Af Amer) BUN/Creatinine Ratio (10-20) Glucose (70-99) mg/dl POC Glucose (other) (70-99) mg/dl Lactate 2.5 H* 1.9 (0.4-2.0) mmol/L Calcium (8.5-10.1) mg/dl POC Ioniz Calcium Leeann (1.12-1.32) mmol/l Magnesium (1.8-2.4) mg/dl Total Bilirubin (0.2-1) mg/dl AST (15-37) U/L ALT (12-78) U/L Alkaline Phosphatase (45-117) U/L Troponin I (0-0.045) ng/ml Total Protein (6.4-8.2) gm/dl Albumin (3.4-5.0) gm/dl Globulin (2.5-4.0) gm/dl Albumin/Globulin Ratio (0.9-2) Procalcitonin (0-0.5) ng/ml Urine Color Yellow Urine Appearance Clear (Clear) Urine pH 6.0 (4.5-7.5) Ur Specific [place] > 1.045 H (1.000-1.030) Urine Protein 1+ H (Negative) Urine Glucose (UA) Negative (Negative) Urine Ketones Trace H (Negative) Urine Blood Trace H (Negative) Urine Nitrite Negative (Negative) Urine Bilirubin Negative (Negative) Urine Urobilinogen Negative (Negative) Ur Leukocyte Esterase Negative (Negative) Urine WBC (Auto) 1-5 (0-5) /hpf Urine RBC (Auto) 0-4 (0-4) /hpf U Hyaline Cast (Auto) 1-5 (0-5) /lpf U Epithel Cells (Auto) 20-30 H (0-5) /lpf Urine Bacteria (Auto) Negative (Negative) Blood Type Antibody Screen Imaging Data Radiologist's Impression: [place], [place] [phone] CT Scan Report Patient: NAS LANCASTERAdmit Date: 06/18/20 MR#: [id number]: [address] [place] Acct ID:[id number]: Date: [address] Zip: [place] [address] Age: 39Location: ED Sex: MRoom/Bed: Att Phy:Diagnosis: LEG PAIN Brit Phy: Juany Ceron DOService Date: 06/18/20 Fam Phy:Interpreting Phy: Abilio Smith Admit Phy: Ordering Phy: Elvia Justice MD cc: ~ ABDOMEN AND PELVIS CT WITHOUT CONTRAST CT DOSE: 1130.52 mGycm HISTORY: Acute low back pain. back pain /ext DVT on lower ext /r/o malignancy TECHNIQUE: Multiaxial CT images of the abdomen and pelvis were performed without contrast. A dose lowering technique was utilized adhering to the principles of ALARA. COMPARISON STUDY: Duplex venous Doppler study and CTA chest of same day FINDINGS: The imaged lung bases are generally clear. 5 mm subpleural solid nodule involves the lateral segment right middle lobe. No pneumatosis or pneumoperitoneum. Imaged inferior cardiac chambers are unremarkable. Limited evaluation of the solid abdominal organs without the use of IV contrast. The spleen, pancreas and right adrenal gland are unremarkable. Minimal calcifications of the left adrenal gland suggests prior hemorrhage or infection. Mild retained contrast in the left renal collecting system. There are a few c ortical renal sinus cysts of the left kidney. Partially decompressed or bladder contains contrast. Unremarkable prostate. Markedly atrophic right kidney. Calcification within a diminutive IVC. Numerous retroperitoneal collaterals are noted with additional collateral vessels of the anterior abdominal wall. Collateral vessels versus retroperitoneal adenopathy measures up to 3.0 x 1.9 cm on image 268 series 3. No bowel obstruction. Moderate fecal retention. Wall thickening of the terminal ileum. The appendix is dilated measuring up to 2.4 cm and is markedly inflamed. Phlegmonous change with reactive edema is noted within the abdominal right lower quadrant overall measuring up to approximately 5.2 cm. Unremarkable soft tissues. The bones appear intact. IMPRESSION: 1. Markedly inflamed appendix with inflammation/phlegmon within the abdominal right lower quadrant. There is no pneumoperitoneum or drainable fluid collection identified. Findings are concerning for acute appendicitis with possible rupture. An appendiceal neoplasm could have a similar appearance. Surgical consultation is needed. 2. Wall thickening of the distal ileum is likely reactive. 3. 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 Additionally, there is suggestion of indeterminate retroperitoneal adenopathy. Attention at follow-up recommended. 4. Markedly atrophic right kidney. 5. Moderate fecal retention. ACT 112: Negative or not required by law. The above report was generated using voice recognition software. It may contain grammatical, syntax or spelling errors. Electronically signed by: Roscoe Smith M.D. 06/18/2020 11:18 AM Dictated: 06/18/20 1053 Transcribed: 06/18/20 1053 [place], [place] [phone] CT Scan Report Patient: NAS LANCASTERAdmit Date: 06/18/20 MR#: [id number]: [address] [place] Acct ID:[id number]: Date: 1980[facility] [address] Age: 39Location: ED Sex: MRoom/Bed: Att Phy:Diagnosis: LEG PAIN Brit Phy: Juany Ceron DOService Date: 06/18/20 [facility] Phy:Interpreting Phy: Terrance Knott MD Admit Phy: Ordering Phy: Alejandro De Souza MD cc: ~ ADDENDUM Addendum: 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 Electronically signed by: Terrance Knott M.D. 06/18/2020 9:[address] ANGIOGRAM OF THE CHEST CLINICAL HISTORY: Atypical chest pain. History of DVT. Possible pulmonary embolism COMPARISON STUDY: No previous studies for comparison. TECHNIQUE: Following the IV administration of 118 mL of Optiray-320, CT angiogram of the thorax was performed from the thoracic inlet to the lung bases utilizing the pulmonary embolus protocol. Images are reviewed in the axial, sagittal, and coronal planes. IV contrast was administered without complication. MIP imaging was performed. A dose lowering technique was utilized adhering to the principles of ALARA. CT DOSE: 690.04 mGy.cm FINDINGS: No pathologically enlarged axillary mediastinal or hilar lymph nodes were v isualized. There was no evidence of thoracic aortic dilatation. There are no definite pulmonary artery filling defects to indicate acute pulmonary embolism. Evaluation of the left lower lobe pulmonary artery branches are moderately limited due to respiratory motion artifact. No pleural effusions are visualized. There was no evidence of focal pulmonary consolidation. There are a few scattered granulomatous calcifications IMPRESSION: 1. Motion degraded study 2. No evidence of acute pulmonary embolism given the clinical limitations of the study 2. No evidence of acute parenchymal consolidation ACT 112: Negative or not required by law. Electronically signed by: Terrance Knott M.D. 06/18/2020 8:27 AM Dictated: 06/18/20823 Transcribed: 06/18/20823 [place], [place] [phone] Ultrasound Report Patient: NAS LANCASTERAdmit Date: 06/18/20 MR#: [id number]: [address] [place] Acct ID:[id number]: Date: 1980[facility] Zip: [place] [address] Age: 39Location: ED Sex: MRoom/Bed: Att Phy:Diagnosis: LEG PAIN Brit Phy: Juany Ceron DOService Date: 06/18/20 [facility] Phy:Interpreting Phy: Terrance Knott MD Admit Phy: Ordering Phy: Alejandro De Souza MD cc: ~ US venous doppler LE CLINICAL HISTORY: Left leg pain. Chest pain. CT angiography the chest limited due to motion artifact COMPARISON STUDY: No previous studies for comparison. FINDINGS: There is extensive left lower extremity DVT extending from the common femoral vein to the calf. IMPRESSION: Extensive left lower extremity DVT extending from the common femoral vein to the proximal calf veins. ACT 112: Negative or not required by law. Electronically signed by: Terrance Knott M.D. 06/18/2020 9:23 AM Dictated: 06/18/20917 Transcribed: 06/18/20917 ECG Data Attestation: I personally reviewed and interpreted this ECG as follows: Indication: + syncope Rate (beats per minute): 85 Rhythm: + normal sinus ECG Intervals/blocks: + Normal QT-c (426) ECG [place]: + Right axis deviation ECG ST segments: no ST depression and no ST elevation Comparison ECG Date: no prior available Blood Pressure Blood Pressure Findings: Low blood pressure MDM Narrative This is a 39-year-old male who arrives to the emergency department hypotensive tachycardic after 2 syncopal episodes at home with what appears to be a DVT in the left lower extremity. Based on the patient's presentation he was immediately sent for CAT scan of the chest to rule out a PE. The patient was also found that have a grossly elevated white blood cell count. He was just on antibiotics for C. difficile. Ultrasound of the left lower extremity confirms DVT. I first discussed the case with vascular surgery here as well as the hospitalist service here. Hospitalist service felt that the patient needed to be transferred to [place]. I then discussed the case with both vascular surgery as well as the ICU in [place] who did not accept the patient as they felt that the patient needed to be seen by general surgery. The general surgeon was kind enough to come and see the patient based on the CAT scan of the abdomen and pelvis however he strongly recommended transfer to a tertiary care center. I again discussed the case with the ICU in [place] who again felt that the patient could be admitted here at [facility]. I then discussed the case again with the vascular and medicine services. In the meanwhile the patient was started on a heparin drip and started on broad-spectrum antibiotics including Zo syn and daptomycin. He was given multiple boluses of fluid after the CT of the chest read. Patient was seen and evaluated as above in room A4. Review was performed of nursing notes and vital signs. I did review pertinent previous visits and patient history. After obtaining a thorough history and physical examination the above work up was performed. An order was placed for continuous cardiac monitoring. The monitor shows a rate of 100 with Normal SInus rhythm. The patient was evaluated during the global COVID-19 pandemic, and that diagnosis was suspected/considered upon their initial presentation. Their evaluation, treatment and testing was consistent with current guidelines for p atients who present with complaints or symptoms that may be related to COVID-19. Impression & Plan Deep vein thrombosis (DVT) of left lower extremity, Lactic acidosis, SIRS (systemic inflammatory response syndrome), Acute renal failure superimposed on stage 3 chronic kidney disease, C. difficile colitis, Appendicitis Discharge Plan Visit Data Chief Complaint: Leg Injury/Pain Stated Complaint: LEG PAIN ED Provider: Alejandro De Souza Discharge Problem: Deep vein thrombosis (DVT) of left lower extremity, Lactic acidosis, SIRS (systemic inflammatory response syndrome), Acute renal failure superimposed on stage 3 chronic kidney disease, C. difficile colitis, Appendicitis Forms Stand Alone Forms: Medical Referral Source [facility] [employer] Prescriptions Prescriptions: No Action aspirin 81 mg Tablet,Delayed Release (Dr/Ec) 81 mg PO QAM RF: 0 diltiazem HCl 120 mg capsule,extended release 24hr 120 mg PO QAM RF: 0 allopurinol 300 mg tablet 300 mg PO QAM RF: 0 loratadine 10 mg Tablet 10 mg PO QAM RF: 0 Referrals Referrals: Juany Ceron DO [Primary Care Provider] - Discharge Problem: Deep vein thrombosis (DVT) of left lower extremity Qualifiers: Affected thrombotic vein of extremity: unspecified vein of extremity Chr onicity: acute Qualified Code(s): I82.402 - Acute embolism and thrombosis of unspecified deep veins of left lower extremity Acute renal failure superimposed on stage 3 chronic kidney disease Qualifiers: Acute renal failure type: unspecified Qualified Code(s): N17.9 - Acute kidney failure, unspecified Appendicitis Qualifiers: Appendicitis type: acute appendicitis Acute appendicitis type: unspecified acute appendicitis type Qualified Code(s): K35.80 - Unspecified acute appendicitis
--- NOTE | 2020-06-18 13:16 | Communication Note ---
Date of Service: June 18, 2020 CT abdomen pelvis study was reviewed, 1. Markedly inflamed appendix with inflammation/phlegmon within the abdominal right lower quadrant. There is no pneumoperitoneum or drainable fluid collection identified. Findings are concerning for acute appendicitis with possible rupture. An appendiceal neoplasm could have a similar appearance. Surgical consultation is needed. 2. Wall thickening of the distal ileum is likely reactive. 3. 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 Additionally, there is suggestion of indeterminate retroperitoneal adenopathy. General surgery Dr. Nance was consulted Patient was evaluated by general surgery and ER A 4 B Per surgery team: Patient does have evidence of appendicitis with phlegmon-surrounding inflammation of the cecum and small bowel No evidence of abscess or free air-I do not think he would require emergent operation for this and most likely Would benefit from IV antibiotic treatment and delayed appendectomy - His DVT in the left lower extremity is causing significant swelling- could be at risk for compartment syndrome if not treated Aggressively- His history of extensive DVT suggests an underlying hypercoagulable situation Per Dr. Nance: Patient would benefit from a tertiary care center-he will require Multidisciplinary help with his problems [facility] ICU was contacted by ER attending Dr. De Souza multiple times Patient is declined ICU admission as his hemodynamics are stable at present Reached out to [facility] on-call hospitalist Patient is accepted for transfer Does not have any bed available immediately Order to admit patient in ICU pending bed availability/ transfer to [facility] Started with IV Zosyn/vancomycin Follow lactic acid every 4 hours, for severe sepsis, peritonitis IV fluids, kept strict n.p.o. Continue IV heparin weight-based protocol Plan of care discussed with on-call cyber intelligence analyst, in agreement with plan Patient will need to be life flighted to [place] when bed available,-[place] Elvia Justice MD
[2020-06-18 14:45] LABS: Basophils # (auto) 0.01 K/uL (0-0.2); Basophils % (auto) 0.1 %; Eosinophils # (auto) 0.01 K/uL (0-0.5); Eosinophils % (auto) 0.1 %; Hematocrit (blood only) 37.1 % (42-52); Hemoglobin 11.8 g/dL (14.0-18.0); Immature Granulocytes # (auto) 0.04 K/uL (0.00-0.02); Immature Granulocytes % (auto) 0.3 %; Lymphocytes # (auto) 0.84 K/uL (1.2-3.4); Lymphocytes % (auto) 5.3 %; Mean Corpuscular Hemoglobin 27.1 pg (25-34); Mean Corpuscular Hgb Conc 31.8 g/dL (32-36); Mean Corpuscular Volume 85.3 fL (80-100); Mean Platelet Volume 9.8 fL (7.4-10.4); Monocytes # (auto) 0.74 K/uL (0.11-0.59); Monocytes % (auto) 4.7 %; Neutrophils # (auto) 14.15 K/uL (1.4-6.5); Neutrophils % (auto) 89.5 %; Platelet Count 315 K/uL (130-400); RDW Coefficient of Variation 14.2 % (11.5-14.5); RDW Standard Deviation 44.2 fL (36.4-46.3); Red Blood Count 4.35 M/uL (4.7-6.1); White Blood Count 15.79 K/uL (4.8-10.8)
[2020-06-18 15:04] LABS: BUN Creatinine Ratio 10.8 (10-20); Calcium 8.9 mg/dl (8.5-10.1); Creatinine Clr Calc Pharmacy 63.9 ml/min; Est GFR (African American) 48.8; Est GFR (Non-African American) 42.1; Potassium 4.1 mmol/L (3.5-5.1)
[2020-06-18 15:07] LABS: Albumin Globulin Ratio 0.7 (0.9-2); Bilirubin,Total 0.7 mg/dl (0.2-1); Globulin 4.4 gm/dl (2.5-4.0); Total Protein 7.4 gm/dl (6.4-8.2)
[2020-06-18] MEDS: HEPARIN SODIUM/DEXTROSE 25,000 UNITS/500 ML BAG IV SCH (15:30)
[2020-06-18] MEDS ORDERED: VANCOMYCIN HCL 1,000 MG/270 ML BAG IV STA (15:33)
[2020-06-18] MEDS ORDERED: VANCOMYCIN CONSULT ACTIVE PRN (15:33)
[2020-06-18] MEDS ORDERED: MoRPHine SULFATE 4 MG/ML 1 ML CARP\\VIAL IV PRN (15:33)
[2020-06-18] MEDS ORDERED: Heparin IV Standard *NO* Bolus IV SCH (15:33)
[2020-06-18] MEDS ORDERED: VANCOMYCIN HCL 2,500 MG in SODIUM CHLORIDE 0.9% 500 ML IV STA (16:06)
--- NOTE | 2020-06-18 16:39 | Critical Care Consultation ---
Date of Consultation June 18, 2020 Assessment & Plan (1) Lactic acidosis: 39-year-old male with a past medical history of glomerulonephritis,, obstructive sleep apnea on CPAP, CKD stage III and recently treated C. difficile infection presenting to the hospital with abdominal pain, left lower extremity pain and found to have left lower extremity DVT with a possible ruptured appendix. Continue with IV Zosyn for the appendicitis and phlegmon formation. Surgery is holding on emergent surgical intervention at this time given his stability and the anticoagulation that is being used for his lower extremity DVT. Plan is for delayed appendectomy. He does not appear to have phlegmasia cerulea gabriel at this time as the coloration of his foot and leg are essentially back to normal and there are dopplerable pulses. Vascular surgery is following. Continue anticoagulation with heparin. I suspect the initial discoloration of his foot was related to his hypoperfused state from hypovolemia. I will check a CK level. I have a low suspicion of compartment syndrome at this time. This is improving nicely with IV hydration. Continue LR at 80 mL/h. COVID-19 testing was negative. A concern of possible malignancy was raised in the abdomen given the retroperitoneal lymphadenopathy. This may be related to the underlying appendicitis as well. Carcinoid tumors can occasionally occur in the appendix as well and thus obviously surgical intervention will be needed in the near future. We are holding his diltiazem and allopurinol. Continue his home CPAP tonight. He is currently febrile to 101.3 . This may be related to his appendicitis and possibly the DVT itself. Continuing IV Zosyn. Assessment and plan was discussed with the patient and his . They were agreement with the plan. We are going to hold on transfer to [facility] at this time. This was also discussed with the hospitalist who is in agreement. Remain in ICU for today with likely downgrade to the floor tomorrow. CRITICAL CARE TIME - I have personally spent 42 minutes of critical care time in the direct management of this patient. This is a life/limb threatening event. This includes time spent evaluating patient, direct bedside care, chart review, placing orders, interpretation of diagnostic studies, discussion with consultants, patient, and family members, as well as other required patient management activities. This time is exclusive of all separately billable procedures, and teaching time and separate from and in addition to any other critical care service time. (2) Acute renal failure superimposed on stage 3 chronic kidney disease: (3) Deep vein thrombosis (DVT) of left lower extremity: (4) JOHN (obstructive sleep apnea): (5) Appendicitis: History of Present Illness Reason for Consultation: ICU monitoring Requesting Physician: Dr. Justice Attending Physician: Elvia Justice MD History of Present Illness 39-year-old male with a past medical history glomerulonephritis, DVT in his teens, history of allergic rhinitis, GERD, gout, obstructive sleep apnea on CPAP and CKD stage III who presented to the hospital due to worsening weakness and pain in his left lower extremity. Patient noted that he had nausea and abdominal pain that has been waxing and waning since February. He underwent an EGD and a colonoscopy and was told that he had findings consistent with gastritis and possible C. difficile colitis. He completed a course of oral vancomycin yesterday. He noted that on Thursday after eating chicken wings and garlic bread sticks, he began having abdominal discomfort and back pain which then transitioned to pain in his leg. He also noted that he was having significant pain in his legs this morning with some shortness of breath. Left lower extremity ultrasound was completed which demonstrated extensive left lower extremity DVT from the common femoral vein to the calf. CTA of the chest was ordered which did not demonstrate any evidence of PE or parenchymal abnormalities, but the exam is degraded due to motion. CT abdomen and pelvis demonstrated marked inflammation of the appendix with inflammation/phlegmon within the abdominal right lower quadrant. No pneumoperitoneum or drainable fluid was noted. Findings are concerning for acute appendicitis with possible rupture. Appendiceal neoplasm could have a similar appearance. Surgical consultation was obtained and no acute surgical intervention was determined to be needed at this time. 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 This has improved substantially and there is very minimal mottling in the left foot. Pulses are easily obtained via Doppler. His creatinine was 2.2 on arrival to the hospital and after fluid boluses it is currently 1.94. Lactate was 2.5 on arrival and is currently 0.5. COVID-19 testing was negative. Patient was started on a heparin drip for his DVT. Hypercoagulable work-up was started. Apparently, arrangements were made for transfer to [facility] for evaluation by interventional radiology and surgery. However, given his stability at this time, the decision was made to hold off on transfer. Allergies Allergy/AdvReac Type Severity Reaction Status Date / Time NSAIDS (Non-Steroidal AdvReac Severe CANNOT Unverified 06/18/20 08:53 Anti-Inflamma TAKE DUE TO KIDNEY PROBLEMS Home Medications Home Medications Medication Instructions Recorded Confirmed Type allopurinol 300 mg PO QAM 06/18/20 06/18/20 History aspirin 81 mg PO QAM 06/18/20 06/18/20 History diltiazem HCl 120 mg PO QAM 06/18/20 06/18/20 History loratadine 10 mg PO QAM 06/18/20 06/18/20 History Patient History Medical History Allergic rhinitis CKD (chronic kidney disease) stage 3, GFR 30-59 ml/min GERD (gastroesophageal reflux disease) Gout History of DVT (deep vein thrombosis) age 15, unprovoked History of glomerulonephritis JOHN (obstructive sleep apnea) Renal agenesis, bilateral Surgical History History of colonoscopy History of esophagogastroduodenoscopy (EGD) History of tonsillectomy and adenoidectomy Family History Mother Asthma Father Hypertension Grandfather CKD (chronic kidney disease) on HD Social History Smoking Status: Never smoker Do You Dip or Chew Tobacco: No; Hx Alcohol Use: Yes Alcohol type: beer Alcohol Intake Frequency: Monthly or Less Alcohol Intake Frequency Comment: rare Hx Substance Use: No Preferred Language: Georgian Communication Ability: Effective Engine Boss Required: No Beliefs That Will Affect Care: None marital status: Current Living Situation: Spouse and Family current occupational status: employed Other Information That Helps Us Care for You: No Feels Safe at Home: Yes Safety Concerns: Feels Safe At This Time Assistive Devices: CPAP and Glasses Review of Systems Review of Systems: All systems reviewed & are unremarkable except as noted in HPI & below Physical Exam Constitutional: WD/WN, vitals as above not ill appearing Eyes: PERRL, conjunctivae normal, anicteric sclerae ENMT: external ear and nose normal, oropharynx normal Neck: normal visual inspection Respiratory: normal respiratory effort, lungs clear to auscultation Cardiovascular: Rate/Rhythm: + tachycardic Heart Sounds: normal S1 and normal S2 Gastrointestinal (Abdomen): Mild tenderness palpation in the right lower quadrant. Bowel sounds present. Musculoskeletal: Head/Neck/Chest: normocephalic and neck supple Minimal left flank tenderness. Mild swelling of the left lower extremity compared to the right. Pulses are palpable in the pedal and tibial area. Skin: no rashes, warm and dry Neurologic: PERRL, EOMI, accommodation nl, no face palsy, no dysarthria Psychiatric: A+Ox3, euthymic affect Results & Data Results & Data ([facility]) Vital Signs (Past 12 Hours) Vital Signs Temp Pulse Pulse Resp BP BP Pulse Ox 06/18/20 15:44 101.3 F H 06/18/20 15:23 103 H 17 129/86 95 06/18/20 15:02 103 H 20 120/77 95 06/18/20 15:00 112 H 19 131/78 96 06/18/20 14:52 106 H 20 120/77 97 06/18/20 14:14 95 H 20 122/77 99 06/18/20 12:24 93 H 22 124/83 99 06/18/20 10:33 95 H 20 114/74 98 06/18/20 08:49 87 22 115/72 97 06/18/20 08:15 100 06/18/20 07:54 97.3 F L 100 H 20 97/66 L 100 I reviewed vital signs, labs and imaging Coding Level of Care Code Critical Care 1st 30-74 mins Diagnoses Lactic acidosis E87.2 Acute renal failure superimposed on stage 3 chronic kidney disease N17.9; N18.3 Acute renal failure type: unspecified Deep vein thrombosis (DVT) of left lower extremity I82.402 Affected thrombotic vein of extremity: unspecified vein of extremity Chronicity: acute JOHN (obstructive sleep apnea) G47.33 Appendicitis K35.80 Acute appendicitis type: unspecified acute appendicitis type Appendicitis type: acute appendicitis Time Spent (min) 42 (1) Acute renal failure superimposed on stage 3 chronic kidney disease Acute renal failure type: unspecified Qualified Code(s): N17.9 - Acute kidney failure, unspecified; N18.3 - Chronic kidney disease, stage 3 (moderate) (2) Deep vein thrombosis (DVT) of left lower extremity Affected thrombotic vein of extremity: unspecified vein of extremity Chronicity: acute Qualified Code(s): I82.402 - Acute embolism and thrombosis of unspecified deep veins of left lower extremity (3) Appendicitis Acute appendicitis type: unspecified acute appendicitis type Appendicitis type: acute appendicitis Qualified Code(s): K35.80 - Unspecified acute appendicitis
[2020-06-18] MEDS: LACTATED RINGER'S 1,000 ML IV SCH (16:51)
[2020-06-18] MEDS: PIPERACILLIN/TAZOBACTAM 4.5 GM in DEXTROSE 5% 100 ML IV SCH ×2 (16:51→23:52)
[2020-06-18 17:04] LABS: Partial Thromboplastin Ratio 2.1
[2020-06-18 17:20] LABS: Partial Thromboplastin Time 59.5 Seconds (21.0-31.0)
--- NOTE | 2020-06-18 17:33 | Communication Note ---
Date of Service: June 18, 2020 Pt admitted to ICU room 104 appreciate input from Cream Tester left lower ext -cyanosis ,mottling has improved substantially /temp improved no longer cold and clammy , arterial pulse palpable Vitals remains stable repeat lactic acid normalized with IV fluid resusicitation improvement of Cr level His creatinine was 2.2 on arrival to the hospital and after fluid boluses it is currently 1.94. COVID-19 testing was negative. cont on IV heparin Gtt for DVT and IVC clot as pt improved clinically -no indication for emergent procedure , transfer to [facility] cancelled pt will be continued to be monitor in ICU on IV vancomycin and Zosyn for intraabdominal infection /ac appendicitis General surgery on board Plan of care d/w with Pt and his by Cream Tester , agreement with staying in [facility] for further care Elvia Justice MD
--- NOTE | 2020-06-18 17:59 | Ultrasound Report ---
DOPPLER ULTRASOUND OF THE INFERIOR VENA CAVA AND ILIAC VEINS CLINICAL HISTORY: Deep venous thrombosis. COMPARISON STUDY: Abdominal CT dated 06/18/2020. TECHNIQUE: Real-time, grayscale, and color Doppler sonography of the inferior vena cava and iliac vei ns is performed. The inferior vena cava is not visualized. This was shown to be diminutive and likely chronically thrombosed on today's abdominal CT scan. The right iliac vein is patent as visualized. D eep venous thrombosis is identified throughout the left iliac vein. IMPRESSION: 1. Nonvisualization of the inferior vena cava. This is likely chronically diminutive/thrombosed. 2. The right iliac vein is patent. 3. Deep venous thrombosis is seen throughout the left iliac vein. Electronically signed by: Alvarado Mtz M.D. 06/18/2020 5:58 PM
[2020-06-18 18:32] LABS: Albumin Level 3.1 gm/dl (3.4-5.0); BUN Creatinine Ratio 10.6 (10-20); Creatinine Clr Calc Pharmacy 59.5 ml/min; Est GFR (African American) 44.3; Est GFR (Non-African American) 38.2
[2020-06-18 18:35] LABS: Albumin Globulin Ratio 0.7 (0.9-2); Bilirubin,Total 0.7 mg/dl (0.2-1); Globulin 4.4 gm/dl (2.5-4.0); Total Protein 7.5 gm/dl (6.4-8.2)
[2020-06-19] MEDS: HEPARIN SODIUM/DEXTROSE 25,000 UNITS/500 ML BAG IV SCH ×2 (00:52→15:50)
[2020-06-19] MEDS: LACTATED RINGER'S 1,000 ML IV SCH ×2 (04:50→14:14)
[2020-06-19 04:59] LABS: Basophils # (auto) 0.02 K/uL (0-0.2); Basophils % (auto) 0.2 %; Eosinophils # (auto) 0.24 K/uL (0-0.5); Hematocrit (blood only) 35.2 % (42-52); Hemoglobin 11.2 g/dL (14.0-18.0); Immature Granulocytes # (auto) 0.04 K/uL (0.00-0.02); Immature Granulocytes % (auto) 0.3 %; Lymphocytes # (auto) 1.65 K/uL (1.2-3.4); Lymphocytes % (auto) 13.5 %; Mean Corpuscular Hemoglobin 27.4 pg (25-34); Mean Corpuscular Hgb Conc 31.8 g/dL (32-36); Mean Corpuscular Volume 86.1 fL (80-100); Mean Platelet Volume 9.6 fL (7.4-10.4); Monocytes # (auto) 0.89 K/uL (0.11-0.59); Monocytes % (auto) 7.3 %; Neutrophils # (auto) 9.42 K/uL (1.4-6.5); Neutrophils % (auto) 76.7 %; Platelet Count 302 K/uL (130-400); RDW Coefficient of Variation 14.4 % (11.5-14.5); RDW Standard Deviation 45.1 fL (36.4-46.3); Red Blood Count 4.09 M/uL (4.7-6.1); White Blood Count 12.26 K/uL (4.8-10.8)
[2020-06-19 05:30] LABS: BUN Creatinine Ratio 10.5 (10-20); Calcium 8.9 mg/dl (8.5-10.1); Creatinine Clr Calc Pharmacy 59.2 ml/min; Magnesium 1.8 mg/dl (1.8-2.4); Potassium 3.9 mmol/L (3.5-5.1)
[2020-06-19 05:32] LABS: Phosphorus 4.2 mg/dl (2.5-4.9)
--- NOTE | 2020-06-19 06:17 | Electrocardiogram Report ---
Test Reason : Blood Pressure : / mmHG Vent. Rate : 085 BPM Atrial Rate : 085 BPM P-R Int : 138 ms QRS Dur : 090 ms QT Int : 358 ms P-R-T Axes : 027 091 029 degrees QTc Int : 426 ms Poor data quality, interpretation may be adversely affected Normal sinus rhythm Rightward axis Low voltage QRS Borderline ECG No previous ECGs available Confirmed by Deepak Christine ([id number]) on 06/18/2020 9:42:48 AM Referred By: REFERRED SELF Confirmed By:Deepak Christine
--- NOTE | 2020-06-19 06:34 | Surgery Progress Note ---
Date of Service June 19, 2020 Assessment & Plan (1) Appendicitis: We will try some clear liquids Continue IV antibiotics as ordered We will need at least 5 to 7 days of IV antibiotics in the hospital Then we will decide on IV he a PICC line or oral antibiotics at home for 1 to 2 weeks Appendectomy would not be for 6 to 8 weeks possibly longer depending on the patient's Progress and management of other current problems Await ID and hematology as well as vascular input Admission and Anticipated Discharge Date Admission Date: June 18, 2020 Subjective Patient awake and alert with less pain in his left leg No significant abdominal pain Has had 2 bowel movements Fever to 38 5 yesterday now down this morning to normal Physical Exam Physical Exam: His abdomen is flat and soft with some tenderness right lower quadrant to deep palpation Constitutional: well developed and well nourished; no acute distress Eyes: + anicteric sclerae Respiratory: normal respiratory effort; no respiratory distress Cardiovascular: Rate/Rhythm: regular rate Musculoskeletal: Head/Neck/Chest: head atraumatic Left foot appears to be somewhat less swollen Skin: no rashes, warm and dry Neurologic: awake Psychiatric: Orientation: alert Results & Data ([facility] [place]) Vital Signs (Past 12 Hours) Vital Signs Temp Pulse Resp BP Pulse Ox 06/19/20 06:25 84 16 119/86 98 06/19/20 05:23 71 14 113/64 98 06/19/20 04:23 37.1 C 62 18 124/70 98 06/19/20 03:23 72 23 105/63 99 06/19/20 02:23 98 H 16 113/73 99 06/19/20 01:23 86 13 96/55 L 97 06/19/20 00:23 37.2 C 86 16 107/63 96 06/18/20 23:23 82 14 127/75 97 06/18/20 23:00 77 13 97 06/18/20 22:23 85 20 145/78 H 97 06/18/20 21:23 84 16 118/66 97 06/18/20 20:23 37.6 C H 86 21 124/74 96 06/18/20 19:23 82 16 116/81 97 PG Care Time/CCT Total # of Minutes Spent Total Time Spent with Patient: Total time spent is greater than 50% in coordination of care (as documented) at patient's floor/unit and/or counseling patient: Coding Level of Care Code 58140 Inpt Consult Level 3 Diagnoses Appendicitis K35.80 Acute appendicitis type: unspecified acute appendicitis type Appendicitis type: acute appendicitis (1) Appendicitis Acute appendicitis type: unspecified acute appendicitis type Appendicitis type: acute appendicitis Qualified Code(s): K35.80 - Unspecified acute appendicitis
--- NOTE | 2020-06-19 07:41 | Communication Note ---
Date of Service: June 19, 2020 labs reviewed, leukocytosis improved 12,000 today BP 119/86 Afebrile now, Spiked temperature yesterday T-max 38.5 at 3 PM 06/18/2020 Echo: Normal left ventricle, motion, hyperdynamic left ventricle, EF 65-70% suggestive of intravascular volume depletion Creatinine improved to 1.94 yesterday afternoon, worsened to 2.11 this a.m., will increase IV fluid to 125 mL/h Nephrology consulted Appreciate input from critical care and surgical team Ultrasound of inferior vena cava and iliac veins: Shows nonvisualization of inferior vena cava, likely chronically thrombosed, DVT seen throughout the left iliac vein. The right iliac vein is patent. Elvia Justice MD
--- NOTE | 2020-06-19 08:22 | Critical Care Progress Note ---
Date of Service June 19, 2020 Assessment & Plan (1) Lactic acidosis: 39-year-old male with a past medical history of glomerulonephritis,, obstructive sleep apnea on CPAP, CKD stage III and recently treated C. difficile infection presenting to the hospital with abdominal pain, left lower extremity pain and found to have left lower extremity DVT with a possible ruptured appendix. Continue with IV Zosyn for his possible ruptured appendix. Surgery is planning a delayed appendectomy in 6 to 8 weeks. Infectious diseases consulted and they will do a telehealth consult. He may need overlap with p.o. vancomycin given his recent C. difficile infection and given the fact that he is currently on broad-spectrum antibiotics. Kidney function has likely plateaued. Nephrology consultation is pending. 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 He also has a diminutive calcified IVC. Vascular surgery was consulted. This may be related to his history of kidney agenesis. His left leg looks much less swollen than it did yesterday. Continue anticoagulation. Will defer to hospitalist in terms of transitioning to oral medications. He would likely be a good candidate for DOAC therapy. He will need to be on anticoagulation lifelong given that this is his second DVT. Mutation studies have been sent. Additionally, there is some concern of possible malignancy in the abdomen and hopefully this will be adequately evaluated during his appendectomy. We are continuing to hold his diltiazem and allopurinol at this time given his recent hypotension and COSTA. I think he is stable to be transferred to the floor. This was discussed with the hospitalist. Patient also discussed on multidisciplinary rounds. (2) Acute renal failure superimposed on stage 3 chronic kidney disease: (3) Deep vein thrombosis (DVT) of left lower extremity: (4) JOHN (obstructive sleep apnea): (5) Appendicitis: Admission and Anticipated Discharge Date Admission Date: June 18, 2020 Subjective Patient seen and examined this morning. He is doing much better from an overall standpoint. Minimal abdominal pain. Leg pain on the left has improved sub stantially. He notes some swelling. He had some trouble sleeping overnight as he was not able to lay on his side due to some mild pain in his leg. He is eating breakfast this morning without any significant issues. Review of Systems Review of Systems: All systems reviewed & are unremarkable except as noted in HPI & below Physical Exam Constitutional: WD/WN, vitals as above not ill appearing Eyes: PERRL, conjunctivae normal, anicteric sclerae ENMT: external ear and nose normal, oropharynx normal Neck: normal visual inspection Respiratory: normal respiratory effort, lungs clear to auscultation Cardiovascular: Rate/Rhythm: regular rate and regular rhythm Heart Sounds: normal S1 and normal S2 Gastrointestinal (Abdomen): Mild tenderness palpation in the right lower quadrant. Bowel sounds present. Musculoskeletal: Head/Neck/Chest: normocephalic and neck supple Minimal left flank tenderness. Mild swelling of the left lower extremity compared to the right. Pulses are palpable in the pedal and tibial area. Skin: no rashes, warm and dry Neurologic: PERRL, EOMI, accommodation nl, no face palsy, no dysarthria Psychiatric: A+Ox3, euthymic affect Results & Data Results & Data ([facility]) Vital Signs (Past 12 Hours) Vital Signs Temp Pulse Resp BP Pulse Ox 06/19/20 06:25 84 16 119/86 98 06/19/20 05:23 71 14 113/64 98 06/19/20 04:23 98.8 F 62 18 124/70 98 06/19/20 03:23 72 23 105/63 99 06/19/20 02:23 98 H 16 113/73 99 06/19/20 01:23 86 13 96/55 L 97 06/19/20 00:23 99.0 F 86 16 107/63 96 06/18/20 23:23 82 14 127/75 97 06/18/20 23:00 77 13 97 06/18/20 22:23 85 20 145/78 H 97 06/18/20 21:23 84 16 118/66 97 06/18/20 20:23 99.7 F H 86 21 124/74 96 I reviewed vital signs, labs and imaging Coding Level of Care Code 84439 Subseq Hosp Care Lvl 3 Diagnoses Lactic acidosis E87.2 Acute renal failure superimposed on stage 3 chronic kidney disease N17.9; N18.3 Acute renal failure type: unspecified Deep vein thrombosis (DVT) of left lower extremity I82.402 Affected thrombotic vein of extremity: unspecified vein of extremity Chronicity: acute JOHN (obstructive sleep apnea) G47.33 Appendicitis K35.80 Acute appendicitis type: unspecified acute appendicitis type Appendicitis type: acute appendicitis (1) Acute renal failure superimposed on stage 3 chronic kidney disease Acute renal failure type: unspecified Qualified Code(s): N17.9 - Acute kidney failure, unspecified; N18.3 - Chronic kidney disease, stage 3 (moderate) (2) Deep vein thrombosis (DVT) of left lower extremity Affected thrombotic vein of extremity: unspecified vein of extremity Chronicity: acute Qualified Code(s): I82.402 - Acute embolism and thrombosis of unspecified deep veins of left lower extremity (3) Appendicitis Acute appendicitis type: unspecified acute appendicitis type Appendicitis type: acute appendicitis Qualified Code(s): K35.80 - Unspecified acute appendicitis
[2020-06-19] MEDS: PIPERACILLIN/TAZOBACTAM 4.5 GM in DEXTROSE 5% 100 ML IV SCH ×2 (08:33→15:54)
--- NOTE | 2020-06-19 09:54 | Consultation ---
Date of Consultation June 19, 2020 Assessment & Plan (1) Deep vein thrombosis (DVT) of left lower extremity: Pt with acute LLE DVT and chronically thrombosed IVC. No sign of cerulea dolens. Recommend AC. No indications for vascular surgical intervention at this time. Also recommend lifelong thigh high compression therapy. This was also discussed with pt. Please call if needed. Affected thrombotic vein of extremity: unspecified vein of extremity Chronicity: acute Qualified Code(s): I82.402 - Acute embolism and thrombosis of unspecified deep veins of left lower extremity (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: History of Present Illness Reason for Consultation: LLE DVT Attending Physician: Elvia Justice MD History of Present Illness 39 yo m with hx of CKD stage III, unilateral renal agenesis, gout, JOHN, GERD, admitted with extensive LLE DVT and appendicitis, seen in consultation today for same. Pt states he noted increasing LLE edema for about 3 days [employer]. States has been having intermittent sharp abd pain for about 2 months [employer] and had seen his PCP for similar episodes over a year ago which resolved. Pt states he developed varicose veins on his R lower abd and groin area just prior to developing a RLE DVT at age 15. No known provoking factors at the time. Pt states edema and discomfort of LLE is improved since admission yesterday. Admits fatigue/malaise and states he had "cold chills" at home which have resolved. Denies LOPEZ, fever, chest pain, N/V, rest pain, claudication, other complaints. Gen surgery planning to perform late appendectomy d/t multiple issues. LLE venous US demonstrates extensive DVT from common fem to tibial veins. IVC/iliac US demonstrates diminutive and chronically thrombosed IVC and iliac DVT. CT abd/pelvis demonstrates appendiceal inflammation/possible rupture. Allergies Allergy/AdvReac Type Severity Reaction Status Date / Time NSAIDS (Non-Steroidal AdvReac Severe CANNOT Unverified 06/18/20 08:53 Anti-Inflamma TAKE DUE TO KIDNEY PROBLEMS Home Medications Home Medications Medication Instructions Recorded Confirmed Type allopurinol 300 mg PO QAM 06/18/20 06/18/20 History aspirin 81 mg PO QAM 06/18/20 06/18/20 History diltiazem HCl 120 mg PO QAM 06/18/20 06/18/20 History loratadine 10 mg PO QAM 06/18/20 06/18/20 History Patient History Medical History Allergic rhinitis CKD (chronic kidney disease) stage 3, GFR 30-59 ml/min GERD (gastroesophageal reflux disease) Gout History of DVT (deep vein thrombosis) age 15, unprovoked History of glomerulonephritis JOHN (obstructive sleep apnea) Renal agenesis, bilateral Surgical History History of colonoscopy History of esophagogastroduodenoscopy (EGD) History of tonsillectomy and adenoidectomy Family History Mother Asthma Father Hypertension Grandfather CKD (chronic kidney disease) on HD Social History Smoking Status: Never smoker Do You Dip or Chew Tobacco: No; Hx Alcohol Use: Yes Alcohol type: beer Alcohol Intake Frequency: Monthly or Less Alcohol Intake Frequency Comment: rare Hx Substance Use: No Preferred Language: Luxembourger Communication Ability: Effective Collections Rep Required: No Beliefs That Will Affect Care: None marital status: Current Living Situation: Spouse and Family current occupational status: employed Other Information That Helps Us Care for You: No Feels Safe at Home: Yes Safety Concerns: Feels Safe At This Time Assistive Devices: CPAP Review of Systems Review of Systems: All systems reviewed & are unremarkable except as noted in HPI & below Physical Exam Constitutional: WD/WN, vitals as above healthy appearing, cooperative and comfortable; not in distress Eyes: PERRL, conjunctivae normal, anicteric sclerae ENMT: Ears: no hearing impairment and no external ear abnormality Neck: normal visual inspection and trachea midline Respiratory: normal respiratory effort, lungs clear to auscultation Cardiovascular: Rate/Rhythm: regular rate and regular rhythm Vessels: normal peripheral pulses, femoral pulses present, posterior tibial pulses present, dorsalis pedis pulses present, brachial pulses present and radial pulses present Extremities: normal capillary refill, + calf tenderness (LLE) and + edema (LLE) Gastrointestinal (Abdomen): Inspection/Auscultation: abdomen normal to inspection (abd/pelvic varicose veins notes) Percussion/Palpation: + abdomen tender (RLQ) Musculoskeletal: no cyanosis or clubbing, extremities motor strength 5/5 Skin: no rashes, warm and dry Neurologic: moves all extremities and awake; no focal motor deficits and not confused Psychiatric: A+Ox3, euthymic affect Results & Data ([facility]) Vital Signs (Past 12 Hours) Vital Signs Temp Pulse Resp BP Pulse Ox 06/19/20 08:54 36.9 C 06/19/20 08:23 78 19 124/81 96 06/19/20 07:23 87 18 112/70 96 06/19/20 06:25 84 16 119/86 98 06/19/20 05:23 71 14 113/64 98 06/19/20 04:23 37.1 C 62 18 124/70 98 06/19/20 03:23 72 23 105/63 99 06/19/20 02:23 98 H 16 113/73 99 06/19/20 01:23 86 13 96/55 L 97 06/19/20 00:23 37.2 C 86 16 107/63 96 06/18/20 23:23 82 14 127/75 97 06/18/20 23:00 77 13 97 06/18/20 22:23 85 20 145/78 H 97
--- NOTE | 2020-06-19 10:20 | Nephrology Consultation ---
Date of Consultation June 19, 2020 Assessment & Plan (1) Acute renal failure superimposed on stage 3 chronic kidney disease: Patient with the acute kidney injury on CKD 3. Patient with the solitary right kidney and Baseline creatinine of 1.6. Creatinine up to 2.1 this morning. Etiology likely ischemic ATN in setting of appendicitis and DVT. Patient also received contrast yesterday which puts him at risk of contrast induced nephropathy. Electrolytes are stable and no signs of volume overload. No indication for dialysis. -continue Ringer's lactate at 80 mL/hour. -monitor renal function with daily BMP -no further contrast unless life saving. Discussed case with ICU attending (2) Deep vein thrombosis (DVT) of left lower extremity: Patient is on heparin drip for left leg DVT and chronic IVC obstruction. He has history of DVT in the right leg. From renal standpoint patient can have a the Coumadin or novel anticoagulants renally dosed. (3) Appendicitis: Patient is the receiving Zosyn per ICU and primary team. Surgery recommending conservative management and the a delayed appendectomy. Renally dose antibiotics for current GFR. History of Present Illness Reason for Consultation: Acute kidney injury on CKD Requesting Physician: Elvia Justice MD Attending Physician: Elvia Justice MD History of Present Illness This is 39-year-old male with multiple medical problems including obstructive sleep apnea on CPAP, gout, CKD stage 3 with baseline creatinine of 1.6 due to history of GN as a child at age 11 and solitary right kidney, DVT of the right leg at age 15 who was admitted on 06/18/2020 with progressively worsening abdominal pain for the past 3 months and weight loss. He was found have a creatinine of 1.9 on admission and up to 2.1 this morning. He is making urine. He was found have left leg DVT. CT abdomen showed a chronic IVC obstruction with calcification, a trophic right kidney, retroperitoneal lymphadenopathy and markedly inflamed the appendix with phlegmon. He is being treated with Zosyn and surgery recommend a conservative management and delayed appendectomy. Patient is getting IV fluids Ringer's lactate at 80 mL/hour. Patient received the 118 meals of contrast for the CTA yesterday. No shortness of breath. Abdominal pain has subsided. Left leg is swollen but less discolored this morning. He denied NSAID use. No vomiting or diarrhea although he was recently treated with p.o. vancomycin for suspected C diff colitis based on finding of inflammation on colonoscopy. Patient has not been eating well and has lost aktie ght. Allergies Allergy/AdvReac Type Severity Reaction Status Date / Time NSAIDS (Non-Steroidal AdvReac Severe CANNOT Unverified 06/18/20 08:53 Anti-Inflamma TAKE DUE TO KIDNEY PROBLEMS Home Medications Home Medications Medication Instructions Recorded Confirmed Type allopurinol 300 mg PO QAM 06/18/20 06/18/20 History aspirin 81 mg PO QAM 06/18/20 06/18/20 History diltiazem HCl 120 mg PO QAM 06/18/20 06/18/20 History loratadine 10 mg PO QAM 06/18/20 06/18/20 History Patient History Medical History (Updated 06/19/20 @ 09:50 by Kasey Vizcaino PA-C) Allergic rhinitis Chronic thrombosis of inferior vena cava CKD (chronic kidney disease) stage 3, GFR 30-59 ml/min GERD (gastroesophageal reflux disease) Gout History of DVT (deep vein thrombosis) age 15, unprovoked History of glomerulonephritis JOHN (obstructive sleep apnea) Renal agenesis, bilateral Surgical History History of colonoscopy History of esophagogastroduodenoscopy (EGD) History of tonsillectomy and adenoidectomy Family History Mother Asthma Father Hypertension Grandfather CKD (chronic kidney disease) on HD Social History Smoking Status: Never smoker Do You Dip or Chew Tobacco: No; Hx Alcohol Use: Yes Alcohol type: beer Alcohol Intake Frequency: Monthly or Less Alcohol Intake Frequency Comment: rare Hx Substance Use: No Preferred Language: Yi Communication Ability: Effective Escort Service Attendant Required: No Beliefs That Will Affect Care: None marital status: Current Living Situation: Spouse and Family current occupational status: employed Other Information That Helps Us Care for You: No Feels Safe at Home: Yes Safety Concerns: Feels Safe At This Time Assistive Devices: CPAP Review of Systems Review of Systems: All systems reviewed & are unremarkable except as noted in HPI & below Physical Exam Physical Exam: General exam: Appears comfortable, no acute distress HEENT: Pupils are equal and reactive to light Neck: No JVD, neck is supple trachea is midline Respiratory system: Clear breath sounds bilaterally. Gastrointestinal: Abdomen is soft, non distended, non tender, bowel sounds are present CVS: Regular rate and rhythm. No murmurs, rubs or gallops Musculoskeletal: No joint or muscle tenderness Extremities: Left leg with the areas of mild mottling, trace edema. Neuro: Oriented, no tremors, no focal neurological deficits Skin: No rashes Results & Data ([facility]) Vital Signs (Past 12 Hours) Vital Signs Temp Pulse Resp BP Pulse Ox 06/19/20 08:54 36.9 C 06/19/20 08:23 78 19 124/81 96 06/19/20 07:23 87 18 112/70 96 06/19/20 06:25 84 16 119/86 98 06/19/20 05:23 71 14 113/64 98 06/19/20 04:23 37.1 C 62 18 124/70 98 06/19/20 03:23 72 23 105/63 99 06/19/20 02:23 98 H 16 113/73 99 06/19/20 01:23 86 13 96/55 L 97 06/19/20 00:23 37.2 C 86 16 107/63 96 06/18/20 23:23 82 14 127/75 97 06/18/20 23:00 77 13 97 06/18/20 22:23 85 20 145/78 H 97 Laboratory Results 06/19/20 04:39 06/18/20 06/18/20 06/18/20 14:34 14:34 17:57 WBC 15.79 H RBC 4.35 L MCV 85.3 MCH 27.1 MCHC 31.8 L RDW Std Deviation 44.2 RDW Coeff of Stevan 14.2 Plt Count 315 MPV 9.8 Phosphorus Albumin 3.0 L 3.1 L 06/19/20 06/19/20 04:39 04:39 WBC 12.26 H RBC 4.09 L MCV 86.1 MCH 27.4 MCHC 31.8 L RDW Std Deviation 45.1 RDW Coeff of Stevan 14.4 Plt Count 302 MPV 9.6 Phosphorus 4.2 Albumin (1) Acute renal failure superimposed on stage 3 chronic kidney disease Acute renal failure type: unspecified Qualified Code(s): N17.9 - Acute kidney failure, unspecified; N18.3 - Chronic kidney disease, stage 3 (moderate) (2) Deep vein thrombosis (DVT) of left lower extremity Affected thrombotic vein of extremity: unspecified vein of extremity Chronicity: acute Qualified Code(s): I82.402 - Acute embolism and thrombosis of unspecified deep veins of left lower extremity (3) Appendicitis Acute appendicitis type: unspecified acute appendicitis type Appendicitis type: acute appendicitis Qualified Code(s): K35.80 - Unspecified acute appendicitis
[2020-06-19] MEDS ORDERED: PANTOprazole 40 MG in SYRINGE 0 ML IV SCH (11:00)
[2020-06-19] MEDS: ACETAMINOPHEN 500 MG TAB PO PRN (11:37)
--- NOTE | 2020-06-19 15:42 | Hospitalist Progress Note ---
Date of Service June 19, 2020 Assessment & Plan (1) Chronic thrombosis of inferior vena cava: Left lower extremity extensive DVT Noted with severe pain swelling and cyanosis of left lower extremity for 2 days Ultrasound of Doppler showed extensive DVT leading to complete thrombosis of l eft common femoral vein Ultrasound of inferior vena cava shows chronic thrombosis extending to left common iliac and left common femoral, normal flow on the right iliac vein Prior history of DVT at age 15, Hypercoagulable work-up ordered-prior to IV heparin Patient started on IV heparin weight-based protocol CTA of the chest shows no evidence of PE Echocardiogram shows normal LV function, hyperdynamic LV suggestive of volume depletion Lower extremity pain swelling and cyanosis improved after IV fluid resuscitation, continue with IV heparin Patient will need lifelong anticoagulation Hold of starting on p.o. anticoagulation given finding of acute abdomen/acute appendicitis (2) Sepsis: And met criteria for sepsis on admission, admitted with tachycardia hypotension, elevated lactic acid, leukocytosis 20 K Source of infection: Acute abdomen, acute appendicitis with possible rupture/phlegmon Vitals improved after IV fluid resuscitation lactic acid level normalized Appreciate input from surgery, CT abdomen pelvis shows chronic occlusion of inferior vena cava with collaterals are noted on anterior abdominal wall Also patient needs to be on active anticoagulation for extensive left lower extremity DVT Patient remains clinically stable, per surgery continue with conservative management with IV antibiotics fluid resuscitation, started on clears tolerating well Plan will be kept on clears for next few days, continue with IV antibiotic If remains clinically stable, outpatient follow-up in surgery clinic in 4-6 weeks Appreciate input from [facility]: Recommends continue with IV Zosyn, for intra-abdominal pathology, Vancomycin is discontinued Given the complexity of intra-abdominal infection and pathology: Anterior abdominal collateral veins, and IVC extensive clot, retroperitoneal lymph nodes: Patient will need surgery at a tertiary level care with colorectal surgery, hematology, multidisciplinary coordination Acute renal failure with CKD stage III 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 Baseline creatinine 1.7 Admitted with acute renal failure creatinine 2.2, secondary to sepsis, deh ydration Also received contrast study for CT of chest Renal function improved with IV fluids Patient input from nephrology Need to monitor BMP avoid NSAIDs contrast studies Extensive thrombosis, retro-peritoneal lymphadenopathy Need to rule out malignancy Will need a tertiary care follow-up for abdominal surgery, and lymph nodes biopsy Oncology referral depending on pathology result Patient will need hematology follow-up for severe coagulopathy Will need lifelong anticoagulation, can be changed to DOAC-need to be renally dosed Oral anticoagulation will not be started until next few days, when risk for acute abdomen/emergency exploratory laparotomy is minimal CODE STATUS: Full code DVT prophylaxis: On IV heparin weight-based protocol Admission and Anticipated Discharge Date Admission Date: June 18, 2020 Subjective Patient reports of feeling a lot better this morning, left leg pain and swelling has improved, Compression stocking ordered by vascular surgery, Helped a lot with left leg pain, able to be out of bed, No shortness of breath, no chest pain, no hypoxia or dyspnea on exertion Comfortable in room air Abdominal pain had subsided, no nausea vomiting, Tolerating a clear liquid diet Had multiple bowel movements since yesterday Review of Systems Review of Systems: All systems reviewed & are unremarkable except as noted in HPI & below Physical Exam Constitutional: WD/WN, vitals as above no acute distress Eyes: PERRL, conjunctivae normal, anicteric sclerae ENMT: external ear and nose normal, oropharynx normal Neck: trachea midline, no thyromegaly Respiratory: normal respiratory effort, lungs clear to auscultation Cardiovascular: Rate/Rhythm: regular rate and regular rhythm Extremities: + edema Gastrointestinal (Abdomen): Inspection/Auscultation: abdomen not distended Percussion/Palpation: abdomen soft; abdomen nontender Musculoskeletal: Improvement of swelling, on left lower extremity, no pain or discomfort Skin: no rashes, warm and dry Neurologic: PERRL, EOMI, accommodation nl, no face palsy, no dysarthria Psychiatric: A+Ox3, euthymic affect Results & Data Results & Data ([facility]) Vital Signs (Past 12 Hours) Vital Signs Temp Pulse Pulse Resp BP BP Pulse Ox 06/19/20 15:28 36.7 C 73 21 123/78 97 06/19/20 11:47 36.7 C 75 18 121/81 100 06/19/20 10:33 85 06/19/20 09:52 36.7 C 82 18 116/77 99 06/19/20 08:54 36.9 C 06/19/20 08:23 78 19 124/81 96 06/19/20 07:23 87 18 112/70 96 06/19/20 06:25 84 16 119/86 98 06/19/20 05:23 71 14 113/64 98 06/19/20 04:23 37.1 C 62 18 124/70 98
[2020-06-19] MEDS ORDERED: MoRPHine SULFATE 2 MG/ML CARP IV PRN (16:07)
[2020-06-20] MEDS: PIPERACILLIN/TAZOBACTAM 4.5 GM in DEXTROSE 5% 100 ML IV SCH ×4 (00:06→23:34)
[2020-06-20 06:24] LABS: Basophils # (auto) 0.01 K/uL (0-0.2); Basophils % (auto) 0.1 %; Eosinophils # (auto) 0.48 K/uL (0-0.5); Hematocrit (blood only) 34.7 % (42-52); Hemoglobin 11.2 g/dL (14.0-18.0); Immature Granulocytes # (auto) 0.02 K/uL (0.00-0.02); Immature Granulocytes % (auto) 0.3 %; Lymphocytes # (auto) 1.18 K/uL (1.2-3.4); Lymphocytes % (auto) 14.8 %; Mean Corpuscular Hemoglobin 27.5 pg (25-34); Mean Corpuscular Hgb Conc 32.3 g/dL (32-36); Mean Platelet Volume 9.8 fL (7.4-10.4); Monocytes % (auto) 7.5 %; Neutrophils % (auto) 71.3 %; Platelet Count 296 K/uL (130-400); RDW Coefficient of Variation 14.5 % (11.5-14.5); RDW Standard Deviation 44.9 fL (36.4-46.3); Red Blood Count 4.08 M/uL (4.7-6.1); White Blood Count 7.99 K/uL (4.8-10.8)
[2020-06-20 06:39] LABS: Partial Thromboplastin Ratio 1.9
[2020-06-20 06:40] LABS: Partial Thromboplastin Time 53.1 Seconds (21.0-31.0)
[2020-06-20 06:56] LABS: Calcium 9.6 mg/dl (8.5-10.1); Creatinine Clr Calc Pharmacy 68.7 ml/min; Est GFR (Non-African American) 45.7; Potassium 3.8 mmol/L (3.5-5.1)
[2020-06-20] MEDS: HEPARIN SODIUM/DEXTROSE 25,000 UNITS/500 ML BAG IV SCH ×2 (07:15→22:39)
--- NOTE | 2020-06-20 07:49 | Surgery Progress Note ---
Date of Service June 20, 2020 Assessment & Plan (1) Appendicitis: Patient appears to be progressing well IV antibiotics I would continue him on clear liquids today and possibly advance tomorrow Consider re-CAT scan tomorrow and then address oral anticoagulation With patient's comorbidity including recurrent significant DVT, history of DVT, significant varus ease In the abdominal wall and likely retroperitoneum -plan would be to refer him to [facility] For evaluation by either colorectal surgery or general surgery within 1 to 2 weeks after discharge. It may be that he could be seen at [facility] Continue current plan for now Admission and Anticipated Discharge Date Admission Date: June 18, 2020 Subjective Patient is awake and alert He is afebrile Has minimal/less abdominal pain Tolerating clear liquids Review of Systems Review of Systems: All systems reviewed & are unremarkable except as noted in HPI & below Physical Exam Physical Exam: His abdomen is flat and soft with minimal tenderness Constitutional: well developed; no acute distress Eyes: + anicteric sclerae Respiratory: normal respiratory effort; no respiratory distress Cardiovascular: Rate/Rhythm: regular rate Musculoskeletal: Head/Neck/Chest: head atraumatic Skin: no rashes, warm and dry Neurologic: awake Psychiatric: Orientation: alert Results & Data ([facility]) Vital Signs (Past 12 Hours) Vital Signs Temp Pulse Pulse Resp BP Pulse Ox 06/20/20 07:35 36.9 C 71 20 121/82 94 06/20/20 03:44 36.8 C 66 16 103/58 L 96 06/19/20 23:59 69 06/19/20 23:50 36.7 C 80 19 113/72 98 PG Care Time/CCT Total # of Minutes Spent Total Time Spent with Patient: Total time spent is greater than 50% in coordination of care (as documented) at patient's floor/unit and/or counseling patient: Coding Level of Care Code 94503 Inpt Consult Level 4 Diagnoses Appendicitis K35.80 Acute appendicitis type: unspecified acute appendicitis type Appendicitis type: acute appendicitis (1) Appendicitis Acute appendicitis type: unspecified acute appendicitis type Appendicitis type: acute appendicitis Qualified Code(s): K35.80 - Unspecified acute appendicitis
[2020-06-20] MEDS: LACTATED RINGER'S 1,000 ML IV SCH ×3 (07:59→19:35)
--- NOTE | 2020-06-20 12:44 | Hospitalist Progress Note ---
Date of Service June 20, 2020 Assessment & Plan (1) Deep vein thrombosis (DVT) of left lower extremity: (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: Present on admission with LLE pain, swelling and cyanosis Left lower extremity extensive DVT Prior history of DVT at age 15 Ultrasound of Doppler showed extensive DVT leading to complete thrombosis of left common femoral vein Ultrasound of inferior vena cava shows chronic thrombosis extending to left common iliac and left common femoral, normal flow on the right iliac vein Hypercoagulable work-up pending CTA of the chest shows no evidence of PE Echocardiogram shows normal LV function, hyperdynamic LV suggestive of volume depletion Continue IV heparin drip Lower extremity pain swelling and cyanosis improved after IV fluid resuscitation and IV heparin Vascular surgery on board recommended to continue anticoagulant and lifelong thigh high compression therapy No indications for vascular surgical intervention at this time. Patient will need lifelong anticoagulation Discussed warfarin and DOAC with patient in detail Will start on oral anticoagulation after stable from surgery standpoint given finding of acute abdomen/acute appendicitis Patient will need hematology follow-up for severe coagulopathy (3) Appendicitis: (4) Sepsis: Met criteria for sepsis on admission, admitted with tachycardia hypotension, elevated lactic acid, leukocytosis 20 K Possible related to acute appendicitis CT abd/plevis showed inflamed appendix with inflammation/phlegmon within the abdominal right lower quadrant. Findings are concerning for acute appendicitis with possible rupture Received IVF and IV antibiotic with Zosyn and vanco. 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 Baseline creatinine 1.7 Admitted with acute renal failure creatinine 2.2, secondary to sepsis, dehydration and contrast CT Received IVF Creatinine improved to 1.8 Nephrology on board Need to monitor BMP avoid NSAIDs contrast studies CODE STATUS: Full code DVT prophylaxis: On IV heparin weight-based protocol Disposition Will discharge once medically stable Admission and Anticipated Discharge Date Admission Date: June 18, 2020 Subjective Pt was seen and examined Lying in bed with no distress with at bedside Pt said that he feels ok He said that the left leg pain improves slightly He said that he does not have any abdominal pain and able to tolerate his diet Denies any chest pain, palpitation, dizziness and SOB Physical Exam Physical Exam: General- No acute distress Head- atraumatic Eyes- PERRL, EOMI, ENT- oropharynx clear Neck- supple, no JVD Lungs- clear to auscultation Heart- regular rhythm; no murmur Abdomen- normal bowel sounds, soft, nontender Extremities- no calf tenderness, +edema LLE Neuro- alert, oriented x 3; PERRL, EOMI; no facial palsy; no dysarthria Skin- warm & dry Results & Data Results & Data ([facility]) Vital Signs (Past 12 Hours) Vital Signs Temp Pulse Resp BP BP Pulse Ox 06/20/20 11:35 36.7 C 76 19 121/80 95 06/20/20 07:35 36.9 C 71 20 121/82 94 06/20/20 03:44 36.8 C 66 16 103/58 L 96 (1) Deep vein thrombosis (DVT) of left lower extremity Affected thrombotic vein of extremity: unspecified vein of extremity Chronicity: acute Qualified Code(s): I82.402 - Acute embolism and thrombosis of unspecified deep veins of left lower extremity (2) Appendicitis Acute appendicitis type: unspecified acute appendicitis type Appendicitis type: acute appendicitis Qualified Code(s): K35.80 - Unspecified acute appendicitis
[2020-06-20] MEDS: ACETAMINOPHEN 500 MG TAB PO PRN (19:35)
--- NOTE | 2020-06-20 20:04 | Nephrology Progress Note ---
Date of Service June 20, 2020 Assessment & Plan (1) Acute renal failure superimposed on stage 3 chronic kidney disease: Patient with the acute kidney injury on CKD 3. Patient with the solitary right kidney and Baseline creatinine of 1.6. Creatinine peak at 2.1 but down to 1.8 this morning. Etiology likely ischemic ATN in setting of appendicitis and DVT. Electrolytes are stable and no signs of volume overload. No indication for dialysis. -continue Ringer's lactate at 80 mL/hour. -monitor renal function with daily BMP -no further contrast unless life saving. (2) Deep vein thrombosis (DVT) of left lower extremity: Patient is on heparin drip for left leg DVT and chronic IVC obstruction. He has history of DVT in the right leg. From renal standpoint patient can have a the Coumadin or novel anticoagulants renally dosed. (3) Appendicitis: Patient is the receiving Zosyn per ICU and primary team. Surgery recommending conservative management and the a delayed appendectomy. Renally dose antibiotics for current GFR. Admission and Anticipated Discharge Date Admission Date: June 18, 2020 Subjective He feels better today. No abdominal pain. Cr down to 1.8 Review of Systems Review of Systems: All systems reviewed & are unremarkable except as noted in HPI & below Physical Exam Physical Exam: General exam: Appears comfortable, no acute distress HEENT: Pupils are equal and reactive to light Neck: No JVD, neck is supple trachea is midline Respiratory system: Clear breath sounds bilaterally. Gastrointestinal: Abdomen is soft, non distended, non tender, bowel sounds are present CVS: Regular rate and rhythm. No murmurs, rubs or gallops Musculoskeletal: No joint or muscle tenderness Extremities: Non tender, no edema, peripheral pulses are present Neuro: Oriented, no tremors, no focal neurological deficits Skin: No rashes Results & Data ([facility]) Vital Signs (Past 12 Hours) Vital Signs Temp Pulse Resp BP Pulse Ox 06/20/20 19:29 38.2 C H 93 H 16 113/75 97 06/20/20 15:52 36.8 C 80 18 123/77 95 06/20/20 11:35 36.7 C 76 19 121/80 95 Laboratory Results 06/20/20 05:50 06/20/20 05:50 WBC 7.99 RBC 4.08 L MCV 85.0 MCH 27.5 MCHC 32.3 RDW Std Deviation 44.9 RDW Coeff of Stevan 14.5 Plt Count 296 MPV 9.8 (1) Acute renal failure superimposed on stage 3 chronic kidney disease Acute renal failure type: unspecified Qualified Code(s): N17.9 - Acute kidney failure, unspecified; N18.3 - Chronic kidney disease, stage 3 (moderate) (2) Deep vein thrombosis (DVT) of left lower extremity Affected thrombotic vein of extremity: unspecified vein of extremity Chr onicity: acute Qualified Code(s): I82.402 - Acute embolism and thrombosis of unspecified deep veins of left lower extremity (3) Appendicitis Acute appendicitis type: unspecified acute appendicitis type Appendicitis type: acute appendicitis Qualified Code(s): K35.80 - Unspecified acute appendicitis
[2020-06-20] MEDS: ZOLPIDEM TARTRATE 5 MG TAB PO PRN (20:23)
[2020-06-21] MEDS: LACTATED RINGER'S 1,000 ML IV SCH ×3 (03:27→23:26)
--- NOTE | 2020-06-21 06:01 | Surgery Progress Note ---
Date of Service June 21, 2020 Assessment & Plan (1) Appendicitis: We will order CT scan for this morning-continue on clear liquids and IV antibiotics for now Depending on findings may consider advancing diet consider a PICC line for home IV antibiotics-consent obtained we will check with cyanide case hardener Continue with current plan for now and I will discuss with the medical team Hopefully we can have follow-up at [facility] in the near future as patient may be higher risk For surgery than normal Admission and Anticipated Discharge Date Admission Date: June 18, 2020 Subjective Had T-max yesterday of 38 2-his white count was normal Physical Exam Physical Exam: Patient has minimal abdominal tenderness Constitutional: well developed; no acute distress Eyes: + anicteric sclerae Respiratory: normal respiratory effort; no respiratory distress Cardiovascular: Rate/Rhythm: regular rate Musculoskeletal: Head/Neck/Chest: head atraumatic Skin: no rashes, warm and dry Neurologic: awake Psychiatric: Orientation: alert Results & Data ([facility]) Vital Signs (Past 12 Hours) Vital Signs Temp Pulse Pulse Resp BP Pulse Ox 06/21/20 03:45 36.7 C 88 18 119/79 99 06/20/20 23:59 74 06/20/20 23:20 37.5 C 83 18 137/82 96 06/20/20 20:15 37.5 C 121/73 06/20/20 19:29 38.2 C H 93 H 16 113/75 97 PG Care Time/CCT Total # of Minutes Spent Total Time Spent with Patient: Total time spent is greater than 50% in coordination of care (as documented) at patient's floor/unit and/or counseling patient: Coding Level of Care Code 63618 Inpt Consult Level 3 Diagnoses Appendicitis K35.80 Acute appendicitis type: unspecified acute appendicitis type Appendicitis type: acute appendicitis (1) Appendicitis Acute appendicitis type: unspecified acute appendicitis type Appendicitis type: acute appendicitis Qualified Code(s): K35.80 - Unspecified acute appendicitis
[2020-06-21 06:08] LABS: Basophils # (auto) 0.01 K/uL (0-0.2); Basophils % (auto) 0.1 %; Eosinophils # (auto) 0.35 K/uL (0-0.5); Eosinophils % (auto) 3.1 %; Hematocrit (blood only) 33.2 % (42-52); Hemoglobin 10.5 g/dL (14.0-18.0); Immature Granulocytes # (auto) 0.03 K/uL (0.00-0.02); Immature Granulocytes % (auto) 0.3 %; Lymphocytes % (auto) 11.7 %; Mean Corpuscular Hemoglobin 27.3 pg (25-34); Mean Corpuscular Hgb Conc 31.6 g/dL (32-36); Mean Corpuscular Volume 86.2 fL (80-100); Mean Platelet Volume 9.8 fL (7.4-10.4); Monocytes # (auto) 0.87 K/uL (0.11-0.59); Monocytes % (auto) 7.8 %; Neutrophils # (auto) 8.58 K/uL (1.4-6.5); Platelet Count 271 K/uL (130-400); RDW Coefficient of Variation 14.5 % (11.5-14.5); RDW Standard Deviation 44.9 fL (36.4-46.3); Red Blood Count 3.85 M/uL (4.7-6.1); White Blood Count 11.14 K/uL (4.8-10.8)
[2020-06-21 06:29] LABS: Partial Thromboplastin Ratio 1.7
[2020-06-21 06:30] LABS: Partial Thromboplastin Time 48.1 Seconds (21.0-31.0)
[2020-06-21 06:43] LABS: BUN Creatinine Ratio 4.9 (10-20); Calcium 9.2 mg/dl (8.5-10.1); Est GFR (African American) 53.7; Est GFR (Non-African American) 46.4; Potassium 3.8 mmol/L (3.5-5.1)
[2020-06-21] MEDS: PIPERACILLIN/TAZOBACTAM 4.5 GM in DEXTROSE 5% 100 ML IV SCH ×3 (07:27→23:25)
--- NOTE | 2020-06-21 10:13 | Nephrology Progress Note ---
Date of Service June 21, 2020 Assessment & Plan (1) Acute renal failure superimposed on stage 3 chronic kidney disease: Patient with the acute kidney injury on CKD 3. Patient with solitary right kidney and Baseline creatinine of 1.6. Creatinine peak at 2.1 but down to 1.79 this morning. Etiology likely ischemic ATN in setting of appendicitis and DVT. Electrolytes are stable and no signs of volume overload. No indication for dialysis. -okay to do CT abdomen with oral contrast. Avoid IV contrast -continue Ringer's lactate at 80 mL/hour. Encourage patient to drink orally as well -monitor renal function with daily BMP (2) Deep vein thrombosis (DVT) of left lower extremity: Patient is on heparin drip for left leg DVT and chronic IVC obstruction. He has history of DVT in the right leg. From renal standpoint patient can have a the Coumadin or novel anticoagulants renally dosed. (3) Appendicitis: Patient is the receiving Zosyn per ICU and primary team. Surgery recommending conservative management and the a delayed appendectomy. Renally dose antibiotics for current GFR. -avoid PICC line for antibiotics. If antibiotics are needed for 1-2 weeks, would prefer midline catheter on the day of discharge. Admission and Anticipated Discharge Date Admission Date: June 18, 2020 Subjective Patient reports feeling better today. No abdominal pain or shortness of breath. No urinary symptoms. Creatinine is stable. Patient planned to get the CT abdomen with oral contrast. IV access being considered for long-term antibiotics. Review of Systems Review of Systems: All systems reviewed & are unremarkable except as noted in HPI & below Physical Exam Physical Exam: General exam: Appears comfortable, no acute distress HEENT: Pupils are equal and reactive to light Neck: No JVD, neck is supple trachea is midline Respiratory system: Clear breath sounds bilaterally. Gastrointestinal: Abdomen is soft, non distended, non tender, bowel sounds are present CVS: Regular rate and rhythm. No murmurs, rubs or gallops Musculoskeletal: No joint or muscle tenderness Extremities: Non tender, no edema, peripheral pulses are present Neuro: Oriented, no tremors, no focal neurological deficits Skin: No rashes Results & Data ([facility]) Vital Signs (Past 12 Hours) Vital Signs Temp Pulse Pulse Resp BP Pulse Ox 06/21/20 07:59 36.8 C 94 H 18 122/80 96 06/21/20 03:45 36.7 C 88 18 119/79 99 06/20/20 23:59 74 06/20/20 23:20 37.5 C 83 18 137/82 96 Laboratory Results 06/21/20 05:40 06/21/20 05:40 WBC 11.14 H RBC 3.85 L MCV 86.2 MCH 27.3 MCHC 31.6 L RDW Std Deviation 44.9 RDW Coeff of Stevan 14.5 Plt Count 271 MPV 9.8 (1) Acute renal failure superimposed on stage 3 chronic kidney disease Acute renal failure type: unspecified Qualified Code(s): N17.9 - Acute kidney failure, unspecified; N18.3 - Chronic kidney disease, stage 3 (moderate) (2) Deep vein thrombosis (DVT) of left lower extremity Affected thrombotic vein of extremity: unspecified vein of extremity Chronicity: acute Qualified Code(s): I82.402 - Acute embolism and thrombosis of unspecified deep veins of left lower extremity (3) Appendicitis Acute appendicitis type: unspecified acute appendicitis type Appendicitis type: acute appendicitis Qualified Code(s): K35.80 - Unspecified acute appendicitis
--- NOTE | 2020-06-21 10:27 | CT Scan Report ---
CT OF THE ABDOMEN AND PELVIS WITH ORAL CONTRAST CLINICAL HISTORY: h/o appendicitis/ phlegmon COMPARISON STUDY: CT of the abdomen and pelvis June 18, 2020. TECHNIQUE: Axial images of the abdomen and pelvis were obtained without IV contrast. Oral contrast wa s administered. Automated exposure control was utilized for the study. A dose lowering technique was utilized adhering to the principles of ALARA. FINDINGS: Lung bases are unremarkable. Evaluation of the abdomen and pelvis is suboptimal on this une nhanced examination. The liver, spleen, adrenal glands, left kidney and pancreas are unremarkable. Ri ght kidney is markedly atrophic. Multiple mildly enlarged retroperitoneal lymph nodes are unchanged s bernadette prior examination. Index aortocaval lymph node on image 257 measures 2.1 x 1.9 cm. Index left co mmon iliac node on image 289 measures 1.8 x 1.6 cm. Note is made of increased attenuation and mild di stention of the left external iliac, internal iliac, common femoral and superficial femoral veins whi ch represents deep venous thrombus as shown on prior ultrasound. Left thigh infiltration has increase d since prior CT. IVC is diminutive. This is likely chronic. Extensive collaterals within the abdomin al wall are again noted. There is no evidence for a bowel obstruction. The appendix is dilated as bef ore. There is extensive periappendiceal infiltration and a small amount of fluid. No drainable absces s is present. Note is made of a 1.4 cm periappendiceal gas and fluid containing collection. This repr esents a tiny periappendiceal abscess. A few additional adjacent locules of gas may be extraluminal. This represents a contained perforation. Wall thickening of the distal ileum is again noted. This is likely reactive. IMPRESSION: 1. Findings consistent with perforated acute appendicitis with no significant change in periappendice al infiltration/phlegmon. No drainable abscess. Interval development of a tiny periappendiceal gas an d fluid containing collection consistent with a tiny periappendiceal abscess. Otherwise, unchanged ap pearance since prior exam. 2. Evidence for extensive deep venous thrombus within the left external iliac, common iliac, common f emoral and superficial femoral veins, as shown on prior ultrasound. Increase in associated left thigh infiltration. 3. Mild retroperitoneal lymphadenopathy which is indeterminate although probably benign. A follow-up CT in 6 months could be obtained. ACT 112: Negative or not required by law. Electronically signed by: Rosalio Prather M.D. 06/21/2020 10:26 AM
[2020-06-21] MEDS: HEPARIN SODIUM/DEXTROSE 25,000 UNITS/500 ML BAG IV SCH (15:02)
--- NOTE | 2020-06-21 17:24 | Hospitalist Progress Note ---
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: Present on admission with LLE pain, swelling and cyanosis Left lower extremity extensive DVT Prior history of DVT at age 15 Ultrasound of Doppler showed extensive DVT leading to complete thrombosis of left common femoral vein Ultrasound of inferior vena cava shows chronic thrombosis extending to left common iliac and left common femoral, normal flow on the right iliac vein Hypercoagulable work-up pending CTA of the chest shows no evidence of PE Echocardiogram shows normal LV function, hyperdynamic LV suggestive of volume depletion Continue IV heparin drip Lower extremity pain swelling and cyanosis improved after IV fluid resuscitation and IV heparin Vascular surgery on board recommended to continue anticoagulant and lifelong thigh high compression therapy No indications for vascular surgical intervention at this time. Patient will need lifelong anticoagulation Discussed warfarin and DOAC with patient in detail Will start on oral anticoagulation after stable from surgery standpoint given finding of acute abdomen/acute appendicitis Will transition to PO anticoagulant in am Patient will need hematology follow-up for severe coagulopathy as an outpatient (3) Appendicitis: (4) Sepsis: Met criteria for sepsis on admission, admitted with tachycardia hypotension, elevated lactic acid, leukocytosis 20 K Possible related to acute appendicitis CT abd/plevis showed inflamed appendix with inflammation/phlegmon within the abdominal right lower quadrant. Findings are concerning for acute appendicitis with possible rupture Received IVF and IV antibiotic with Zosyn and vanco. vanco was discontinued ID on board that recommended to continue IV zosyn, once pt is able to tolerate PO, will transition to PO flagyl and cipro renal dose until removal of the appendix Repeat CT done today showed Findings consistent with perforated acute appendicitis with no significant change in periappendiceal infiltration/phlegmon. No drainable abscess. Interval development of a tiny periappendiceal gas and fluid containing collection consistent with a tiny periappendiceal abscess. Case discussed with surgery recommended conservative management with IV abx Surgery preferred to continue IV abx on discharge, will discuss with ID about IV abx on discharge. 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 But Avoid IV contrast Continue monitor BMP CODE STATUS: Full code DVT prophylaxis: On IV heparin weight-based protocol Disposition Will discharge once medically stable Admission and Anticipated Discharge Date Admission Date: June 18, 2020 Subjective Pt was seen and examined Sitting in bed with no distress Pt said that last night spiked a low grade fever Tolerated her diet Currently he does not have any abdominal pain, chest pain and SOB Physical Exam Physical Exam: General- No acute distress Head- atraumatic Eyes- PERRL, EOMI, ENT- oropharynx clear Neck- supple, no JVD Lungs- clear to auscultation Heart- regular rhythm; no murmur Abdomen- normal bowel sounds, soft, nontender Extremities- no calf tenderness, +edema LLE Neuro- alert, oriented x 3; PERRL, EOMI; no facial palsy; no dysarthria Skin- warm & dry Results & Data Results & Data ([facility]) Vital Signs (Past 12 Hours) Vital Signs Temp Pulse Pulse Resp BP BP Pulse Ox 06/21/20 16:00 81 06/21/20 15:31 37.0 C 82 21 139/84 95 06/21/20 11:22 37.1 C 76 18 131/66 96 06/21/20 07:59 36.8 C 94 H 18 122/80 96 (1) Deep vein thrombosis (DVT) of left lower extremity Affected thrombotic vein of extremity: unspecified vein of extremity Chronicity: acute Qualified Code(s): I82.402 - Acute embolism and thrombosis of unspecified deep veins of left lower extremity (2) Appendicitis Acute appendicitis type: unspecified acute appendicitis type Appendicitis type: acute appendicitis Qualified Code(s): K35.80 - Unspecified acute appendicitis
[2020-06-21 22:31] LABS: Anti Cardiolipin Ab IgG <14 GPL; Anti Cardiolipin Ab IgM 12 MPL; Anti-Thrombin III Activity 102 % normal (80-135); B2 Glycoprotein IgG <9 SGU (<=20); B2 Glycoprotein IgM <9 SMU (<=20); PTT LA Screen 41 sec (<=40); Protein S Functional(Activity) 85 % (70-150)
[2020-06-22] MEDS: ZOLPIDEM TARTRATE 5 MG TAB PO PRN (01:01)
[2020-06-22 05:00] LABS: Hematocrit (blood only) 33.5 % (42-52); Hemoglobin 10.8 g/dL (14.0-18.0); Mean Corpuscular Hemoglobin 27.5 pg (25-34); Mean Corpuscular Hgb Conc 32.2 g/dL (32-36); Mean Corpuscular Volume 85.2 fL (80-100); Mean Platelet Volume 9.5 fL (7.4-10.4); Platelet Count 244 K/uL (130-400); RDW Coefficient of Variation 14.5 % (11.5-14.5); RDW Standard Deviation 45.1 fL (36.4-46.3); Red Blood Count 3.93 M/uL (4.7-6.1); White Blood Count 9.59 K/uL (4.8-10.8)
[2020-06-22 05:19] LABS: Calcium 9.1 mg/dl (8.5-10.1); Est GFR (African American) 53.7; Est GFR (Non-African American) 46.4; Potassium 3.4 mmol/L (3.5-5.1)
[2020-06-22 05:24] LABS: Partial Thromboplastin Ratio 1.9
[2020-06-22 05:27] LABS: Partial Thromboplastin Time 52.1 Seconds (21.0-31.0)
[2020-06-22] MEDS: HEPARIN SODIUM/DEXTROSE 25,000 UNITS/500 ML BAG IV SCH (05:27)
[2020-06-22] MEDS: PIPERACILLIN/TAZOBACTAM 4.5 GM in DEXTROSE 5% 100 ML IV SCH ×3 (07:53→23:33)
[2020-06-22] MEDS ORDERED: POTASSIUM CHLORIDE 20 MEQ TABCR PO STA (08:00)
[2020-06-22] MEDS: LACTATED RINGER'S 1,000 ML IV SCH (08:54)
[2020-06-22 09:12] LABS: Lupus Hex Phase (Rflxdonotord) Weak Positive (Negative)
--- NOTE | 2020-06-22 15:51 | Hospitalist Progress Note ---
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: Present on admission with LLE pain, swelling and cyanosis Left lower extremity extensive DVT Prior history of DVT at age 15 Ultrasound of Doppler showed extensive DVT leading to complete thrombosis of left common femoral vein Ultrasound of inferior vena cava shows chronic thrombosis extending to left common iliac and left common femoral, normal flow on the right iliac vein Hypercoagulable work-up pending CTA of the chest shows no evidence of PE Echocardiogram shows normal LV function, hyperdynamic LV suggestive of volume depletion Continue IV heparin drip Lower extremity pain swelling and cyanosis improved after IV fluid resuscitation and IV heparin Vascular surgery on board recommended to continue anticoagulant and lifelong thigh high compression therapy No indications for vascular surgical intervention at this time. Patient will need lifelong anticoagulation Discussed warfarin and DOAC with patient in detail Will start on oral anticoagulation after stable from surgery standpoint given finding of acute abdomen/acute appendicitis Will transition to PO anticoagulant tonight with eliquis and d/c heparin drip Patient will need hematology follow-up for severe coagulopathy as an outpatient (3) Appendicitis: (4) Sepsis: Met criteria for sepsis on admission, admitted with tachycardia hypotension, elevated lactic acid, leukocytosis 20 K Possible related to acute appendicitis CT abd/plevis showed inflamed appendix with inflammation/phlegmon within the abdominal right lower quadrant. Findings are concerning for acute appendicitis with possible rupture Received IVF and IV antibiotic with Zosyn and vanco. vanco was discontinued ID on board that recommended to continue IV zosyn, once pt is able to tolerate PO, will transition to PO flagyl and cipro renal dose until removal of the appendix Repeat CT done today showed Findings consistent with perforated acute appe ndicitis with no significant change in periappendiceal infiltration/phlegmon. No drainable abscess. Interval development of a tiny periappendiceal gas and fluid containing collection consistent with a tiny periappendiceal abscess. Case discussed with surgery recommended conservative management with IV abx case discussed with ID at [facility] [place] that recommended to transition to PO flagyl and cipro, but since surgery would like pt to stay on IV abx, we will have to continue on Zosyn Duration of the abx will be dependent on when surgery will be schedule for the appendix removal case management checked for the cost for the Zosyn, it will be about $1000 for 30 days Case discussed with surgery Dr. Nance about the cost of the abx if continues with the IV Zosyn vs the cipro/flagyl. Surgery agreed with the Cipro and flagyl PO on discharge Continue monitor CBC and BMP while on abx Diet advanced to full liquid Follow up with Surgery on Tuesday 06/26 @ 10:30 AM at [facility] with Dr. 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 But Avoid IV contrast Continue monitor BMP Diarrhea if diarrhea persists, will check stool for Cdiff Continue monitor electrolytes CODE STATUS: Full code DVT prophylaxis: On IV heparin weight-based protocol Disposition Will discharge once medically stable Admission and Anticipated Discharge Date Admission Date: June 18, 2020 Subjective Pt was seen and examined Lying in bed with no distress Pt said that he tolerated the full liquid diet He said that he has been having episodes of diarrhea Denies any chest pain, palpitation, dizziness and SOB Physical Exam Physical Exam: General- No acute distress Head- atraumatic Eyes- PERRL, EOMI, ENT- oropharynx clear Neck- supple, no JVD Lungs- clear to auscultation Heart- regular rhythm; no murmur Abdomen- normal bowel sounds, soft, nontender Extremities- no calf tenderness, +edema LLE Neuro- alert, oriented x 3; PERRL, EOMI; no facial palsy; no dysarthria Skin- warm & dry Results & Data Results & Data ([facility]) Vital Signs (Past 12 Hours) Vital Signs Temp Pulse Pulse Resp BP Pulse Ox 06/22/20 15:15 37.3 C 89 21 150/97 H 97 06/22/20 11:56 37.4 C 96 H 18 132/89 98 06/22/20 08:03 37.3 C 89 18 141/89 H 95 06/22/20 07:30 82 06/22/20 04:22 37.0 C 97 H 16 129/83 98 (1) Deep vein thrombosis (DVT) of left lower extremity Affected thrombotic vein of extremity: unspecified vein of extremity Chronicity: acute Qualified Code(s): I82.402 - Acute embolism and thrombosis of unspecified deep veins of left lower extremity (2) Appendicitis Acute appendicitis type: unspecified acute appendicitis type Appendicitis type: acute appendicitis Qualified Code(s): K35.80 - Unspecified acute appendicitis
--- NOTE | 2020-06-22 16:17 | Nephrology Progress Note ---
Date of Service June 22, 2020 Assessment & Plan (1) Acute renal failure superimposed on stage 3 chronic kidney disease: Patient with the acute kidney injury on CKD 3. Patient with solitary right kidney and Baseline creatinine of 1.6. Creatinine peak at 2.1 but down to 1.79 this morning. Etiology likely ischemic ATN in setting of appendicitis and DVT. Electrolytes are stable and no signs of volume overload. No indication for dialysis. -Avoid IV contrast -stop IV fluids. Encourage patient to drink orally as well -monitor renal function with daily BMP (2) Deep vein thrombosis (DVT) of left lower extremity: Patient is on heparin drip for left leg DVT and chronic IVC obstruction. He has history of DVT in the right leg. From renal standpoint patient can have a the Coumadin or novel anticoagulants renally dosed. (3) Appendicitis: Patient is the receiving Zosyn per ICU and primary team. Surgery recommending conservative management and the a delayed appendectomy. Renally dose antibiotics for current GFR. -avoid PICC line for antibiotics. If antibiotics are needed for 1-2 weeks, wou ld prefer midline catheter on the day of discharge. -consider oral vancomycin while on antibiotics as patient continues to have diarrhea Admission and Anticipated Discharge Date Admission Date: June 18, 2020 Subjective Patient feels better today. He is eating and drinking well. Still has some abdominal disc comfort. Renal function is stable. Main complaint is diarrhea Review of Systems Review of Systems: All systems reviewed & are unremarkable except as noted in HPI & below Physical Exam Physical Exam: General exam: Appears comfortable, no acute distress HEENT: Pupils are equal and reactive to light Neck: No JVD, neck is supple trachea is midline Respiratory system: Clear breath sounds bilaterally. Gastrointestinal: Abdomen is soft, non distended, non tender, bowel sounds are present CVS: Regular rate and rhythm. No murmurs, rubs or gallops Musculoskeletal: No joint or muscle tenderness Extremities: Non tender, no edema, peripheral pulses are present Neuro: Oriented, no tremors, no focal neurological deficits Skin: No rashes Results & Data ([facility]) Vital Signs (Past 12 Hours) Vital Signs Temp Pulse Pulse Resp BP Pulse Ox 06/22/20 15:15 37.3 C 89 21 150/97 H 97 06/22/20 11:56 37.4 C 96 H 18 132/89 98 06/22/20 08:03 37.3 C 89 18 141/89 H 95 06/22/20 07:30 82 06/22/20 04:22 37.0 C 97 H 16 129/83 98 Laboratory Results 06/22/20 04:48 06/22/20 04:48 WBC 9.59 RBC 3.93 L MCV 85.2 MCH 27.5 MCHC 32.2 RDW Std Deviation 45.1 RDW Coeff of Stevan 14.5 Plt Count 244 MPV 9.5 (1) Acute renal failure superimposed on stage 3 chronic kidney disease Acute renal failure type: unspecified Qualified Code(s): N17.9 - Acute kidney failure, unspecified; N18.3 - Chronic kidney disease, stage 3 (moderate) (2) Deep vein thrombosis (DVT) of left lower extremity Affected thrombotic vein of extremity: unspecified vein of extremity [place]i city: acute Qualified Code(s): I82.402 - Acute embolism and thrombosis of unspecified deep veins of left lower extremity (3) Appendicitis Acute appendicitis type: unspecified acute appendicitis type Appendicitis type: acute appendicitis Qualified Code(s): K35.80 - Unspecified acute appendicitis
[2020-06-22] MEDS: APIXABAN 2.5 MG TAB PO SCH (20:42)
[2020-06-23 07:06] LABS: BUN Creatinine Ratio 3.4 (10-20); Calcium 9.8 mg/dl (8.5-10.1); Creatinine Clr Calc Pharmacy 69.8 ml/min; Est GFR (African American) 53.7; Est GFR (Non-African American) 46.4; Potassium 3.7 mmol/L (3.5-5.1)
[2020-06-23] MEDS: dilTIAZem HCL 120 MG CAPCR PO SCH (09:46)
[2020-06-23] MEDS: LORATADINE 10 MG TAB PO SCH (09:46)
[2020-06-23] MEDS: APIXABAN 2.5 MG TAB PO SCH ×2 (09:47→20:11)
[2020-06-23] MEDS: allopurinoL 300 MG TAB PO SCH (09:47)
[2020-06-23] MEDS: PIPERACILLIN/TAZOBACTAM 4.5 GM in DEXTROSE 5% 100 ML IV SCH ×3 (09:54→23:35)
--- NOTE | 2020-06-23 14:00 | Surgery Progress Note ---
Date of Service doing better, no abdominal pain, no nausea, no fever, no leg pain, no SOB, June 23, 2020 Assessment & Plan Admission and Anticipated Discharge Date Admission Date: June 18, 2020 Supervising Physician Co-Signing Physician Notes Attending addendum: Patient seen and examined, care coordinated with Lisa Guerrier PA-C Labs and images reviewed This is a 39-year-old male, presented to ER with severe left lower extremity pain, started 2 days back worse this morning, associated with shortness of breath dizzy spell, diaphoresis, presyncope Patient denies of any recent immobility, no long duration trip, Fairly active at baseline CTA of chest shows no evidence of pulmonary embolism Lower extremity Doppler: Extensive left lower extremity DVT with complete o cclusion of left femoral artery to the left calf veins. Patient was hypotensive, tachycardic in the ER, required IV fluid bolus Physical exam: As per Cele Guerrier, PSC Hypercoagulable work-up was sent: Patient had a prior history of DVT on right leg, not on any anticoagulation at present other than 81 mg daily aspirin Discussed with on-call interventional cardiology: Dr. Torito Gibson: R eceiving a lower extremity Doppler image, he recommends transfer to tertiary care for emergent thrombectomy, high risk for gangrene,/loss of limb without emergent treatment ER physician Dr. De Souza updated, Patient is being transferred to tertiary care, [facility] Ximena Justice MD 06/23/2020, 1:59PM, doing fine, advance diet, continue treatment, will F/U Subjective Pt was seen and examined Lying in bed with no distress Pt said that he tolerated the full liquid diet He said that he has been having episodes of diarrhea Denies any chest pain, palpitation, dizziness and SOB Physical Exam Constitutional: WD/WN, vitals as above well developed and well nourished Eyes: PERRL, conjunctivae normal, anicteric sclerae ENMT: external ear and nose normal, oropharynx normal Neck: trachea midline, no thyromegaly Respiratory: normal respiratory effort, lungs clear to auscultation Cardiovascular: RRR, no murmur, no edema Rate/Rhythm: regular rate and regular rhythm Gastrointestinal (Abdomen): normal bowel sounds, soft, nontender, no hepatosplenomegaly Musculoskeletal: no cyanosis or clubbing, extremities motor strength 5/5 Skin: no rashes, warm and dry Neurologic: awake Psychiatric: Orientation: alert and oriented x 3 Results & Data ([facility]) Vital Signs (Past 12 Hours) Vital Signs Temp Pulse Resp BP Pulse Ox 06/23/20 12:35 37.2 C 84 18 121/64 94 06/23/20 07:12 37.2 C 79 20 130/80 97 06/23/20 03:45 37.3 C 60 16 124/80 93 Laboratory Results Abnormal lab results 06/23/20 Range/Units 06:15 BUN 6 L (7-18) mg/dl Creatinine 1.79 H (0.6-1.4) mg/dl BUN/Creatinine Ratio 3.4 L (10-20)
--- NOTE | 2020-06-23 19:14 | Hospitalist Progress Note ---
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: Present on admission with LLE pain, swelling and cyanosis Left lower extremity extensive DVT Prior history of DVT at age 15 Ultrasound of Doppler showed extensive DVT leading to complete thrombosis of left common femoral vein Ultrasound of inferior vena cava shows chronic thrombosis extending to left common iliac and left common femoral, normal flow on the right iliac vein Hypercoagulable work-up pending CTA of the chest shows no evidence of PE Echocardiogram shows normal LV function, hyperdynamic LV suggestive of volume depletion Continue IV heparin drip Lower extremity pain swelling and cyanosis improved after IV fluid resuscitation and IV heparin Vascular surgery on board recommended to continue anticoagulant and lifelong thigh high compression therapy No indications for vascular surgical intervention at this time. Patient will need lifelong anticoagulation Discussed warfarin and DOAC with patient in detail heparin drip was discontinued last night ad transition to eliquis Continue eliliquis Patient will need hematology follow-up for severe coagulopathy as an outpatient (3) Appendicitis: (4) Sepsis: Met criteria for sepsis on admission, admitted with tachycardia hypotension, elevated lactic acid, leukocytosis 20 K Possible related to acute appendicitis CT abd/plevis showed inflamed appendix with inflammation/phlegmon within the abdominal right lower quadrant. Findings are concerning for acute appendicitis with possible rupture Received IVF and IV antibiotic with Zosyn and vanco. vanco was discontinued ID on board that recommended to continue IV zosyn, once pt is able to tolerate PO, will transition to PO flagyl and cipro renal dose until removal of the appendix Repeat CT done today showed Findings consistent with perforated acute appendicitis with no significant change in periappendiceal infiltration/phlegmon. No drainable abscess. Interval development of a tiny periappendiceal gas and fluid containing collection consistent with a tiny periappendiceal abscess. Case discussed with surgery recommended conservative management with IV abx case discussed with ID at [facility] [place] that recommended to transition to PO flagyl and cipro, but since surgery would like pt to stay on IV abx, we will have to continue on Zosyn Duration of the abx will be dependent on when surgery will be schedule for the appendix removal case management checked for the cost for the Zosyn, it will be about $1000 for 30 days Case discussed with surgery Dr. Nance about the cost of the abx if continues with the IV Zosyn vs the cipro/flagyl. Surgery agreed with the Cipro and flagyl PO on discharge Continue monitor CBC and BMP while on abx Tolerated diet and advanced to full liquid Follow up with Surgery on Tuesday 06/26 @ 10:30 AM at [facility] with Dr. 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 But Avoid IV contrast Continue monitor BMP Diarrhea Stool for Cdiff negative Continue monitor electrolytes diarrhea improves CODE STATUS: Full code DVT prophylaxis: On Eliquis Disposition Will discharge home tomorrow Admission and Anticipated Discharge Date Admission Date: June 18, 2020 Subjective Pt was seen and examined Sitting in bed with no distress Pt said that diarrhea improves Tolerated his diet Denies any chest pain, palpitation and SOB Physical Exam Physical Exam: General- No acute distress Head- atraumatic Eyes- PERRL, EOMI, ENT- oropharynx clear Neck- supple, no JVD Lungs- clear to auscultation Heart- regular rhythm; no murmur Abdomen- normal bowel sounds, soft, nontender Extremities- no calf tenderness, +edema LLE Neuro- alert, oriented x 3; PERRL, EOMI; no facial palsy; no dysarthria Skin- warm & dry Results & Data Results & Data ([facility]) Vital Signs (Past 12 Hours) Vital Signs Temp Pulse Resp BP Pulse Ox 06/23/20 15:09 37.1 C 83 21 126/83 95 06/23/20 12:35 37.2 C 84 18 121/64 94 06/23/20 07:12 37.2 C 79 20 130/80 97 (1) Deep vein thrombosis (DVT) of left lower extremity Affected thrombotic vein of extremity: unspecified vein of extremity Chronicity: acute Qualified Code(s): I82.402 - Acute embolism and thrombosis of unspecified deep veins of left lower extremity (2) Appendicitis Acute appendicitis type: unspecified acute appendicitis type Appendicitis type: acute appendicitis Qualified Code(s): K35.80 - Unspecified acute appendicitis
--- NOTE | 2020-06-23 19:39 | Nephrology Progress Note ---
Date of Service June 23, 2020 Assessment & Plan (1) Acute renal failure superimposed on stage 3 chronic kidney disease: Patient with the acute kidney injury on CKD 3. Patient with solitary right kidney and Baseline creatinine of 1.6. Creatinine peak at 2.1 but down to 1.79. I think this is his new baseline. Etiology likely ischemic ATN in setting of appendicitis and DVT. Electrolytes are stable and no signs of volume overload. No indication for dialysis. -Avoid IV contrast -stop IV fluids. Encourage patient to drink orally as well -monitor renal function with daily BMP (2) Deep vein thrombosis (DVT) of left lower extremity: He has history of DVT in the right leg. Agree with eliquis , renally dosed. (3) Appendicitis: Surgery recommending conservative management and the a delayed appe ndectomy. To be followed by surgery as outpatient. Admission and Anticipated Discharge Date Admission Date: June 18, 2020 Subjective Pt was seen and examined Sitting in bed with no distress Pt said that diarrhea improves Tolerated his diet Denies any chest pain, palpitation and SOB Review of Systems Review of Systems: All systems reviewed & are unremarkable except as noted in HPI & below Physical Exam Physical Exam: General- No acute distress Head- atraumatic Eyes- PERRL, EOMI, ENT- oropharynx clear Neck- supple, no JVD Lungs- clear to auscultation Heart- regular rhythm; no murmur Abdomen- normal bowel sounds, soft, nontender Extremities- no calf tenderness, +edema LLE Neuro- alert, oriented x 3; PERRL, EOMI; no facial palsy; no dysarthria Skin- warm & dry Results & Data ([facility]) Vital Signs (Past 12 Hours) Vital Signs Temp Pulse Resp BP Pulse Ox 06/23/20 15:09 37.1 C 83 21 126/83 95 06/23/20 12:35 37.2 C 84 18 121/64 94 Laboratory Results 06/22/20 04:48 06/23/20 06:15 (1) Acute renal failure superimposed on stage 3 chronic kidney disease Acute renal failure type: unspecified Qualified Code(s): N17.9 - Acute kidney failure, unspecified; N18.3 - Chronic kidney disease, stage 3 (moderate) (2) Deep vein thrombosis (DVT) of left lower extremity Affected thrombotic vein of extremity: unspecified vein of extremity Chronic ity: acute Qualified Code(s): I82.402 - Acute embolism and thrombosis of unspecified deep veins of left lower extremity (3) Appendicitis Acute appendicitis type: unspecified acute appendicitis type Appendicitis type: acute appendicitis Qualified Code(s): K35.80 - Unspecified acute appendicitis
[2020-06-24] MEDS: LORATADINE 10 MG TAB PO SCH (08:37)
[2020-06-24] MEDS: PIPERACILLIN/TAZOBACTAM 4.5 GM in DEXTROSE 5% 100 ML IV SCH (08:37)
[2020-06-24] MEDS: dilTIAZem HCL 120 MG CAPCR PO SCH (08:37)
[2020-06-24] MEDS: allopurinoL 300 MG TAB PO SCH (08:38)
[2020-06-24] MEDS: APIXABAN 2.5 MG TAB PO SCH (08:38)
--- NOTE | 2020-06-24 09:48 | Nephrology Progress Note ---
Date of Service June 24, 2020 Assessment & Plan (1) Acute renal failure superimposed on stage 3 chronic kidney disease: Patient with the acute kidney injury on CKD 3. Patient with solitary right kidney and Baseline creatinine of 1.6. Creatinine peak at 2.1 but down to 1.79, I think this is his new baseline. Etiology likely ischemic ATN in setting of appendicitis and DVT. Electrolytes are stable and no signs of volume overload. No indication for dialysis. Stable from renal point. (2) Deep vein thrombosis (DVT) of left lower extremity: He has history of DVT in the right leg. Agree with roselia , renally dosed. (3) Appendicitis: Surgery recommending conservative management and the a delayed appendectomy. To be followed by surgery as outpatient. Admission and Anticipated Discharge Date Admission Date: June 18, 2020 Subjective Resting comfortably in the bed, no shortness of breath, is improved almost settled now. Urine output continues to be good. Review of Systems Review of Systems: All systems reviewed & are unremarkable except as noted in Subjective Physical Exam Physical Exam: General- No acute distress Head- atraumatic Eyes- PERRL, EOMI, ENT- oropharynx clear Neck- supple, no JVD Lungs- clear to auscultation Heart- regular rhythm; no murmur Abdomen- normal bowel sounds, soft, nontender Extremities- no calf tenderness, +edema LLE Neuro- alert, oriented x 3; PERRL, EOMI; no facial palsy; no dysarthria Skin- warm & dry Results & Data ([facility]) Vital Signs (Past 12 Hours) Vital Signs Temp Pulse Pulse Pulse Resp BP Pulse Ox 06/24/20 08:00 36.6 C 84 20 122/76 97 06/24/20 04:26 36.4 C L 82 18 123/78 98 06/23/20 23:22 36.9 C 84 18 118/75 97 06/23/20 23:18 83 (1) Acute renal failure superimposed on stage 3 chronic kidney disease Acute renal failure type: unspecified Qualified Code(s): N17.9 - Acute kidney failure, unspecified; N18.3 - Chronic kidney disease, stage 3 (moderate) (2) Deep vein thrombosis (DVT) of left lower extremity Affected thrombotic vein of extremity: unspecified vein of extremity Chronicity: acute Qualified Code(s): I82.402 - Acute embolism and thrombosis of unspecified deep veins of left lower extremity (3) Appendicitis Acute appendicitis type: unspecified acute appendicitis type Appendicitis type: acute appendicitis Qualified Code(s): K35.80 - Unspecified acute appendicitis
--- NOTE | 2020-06-24 12:00 | Surgery Progress Note ---
Date of Service stable, tolerated diet, no abdominal pain, June 24, 2020 Assessment & Plan Admission and Anticipated Discharge Date Admission Date: June 18, 2020 Supervising Physician Co-Signing Physician Notes Attending addendum: Patient seen and examined, care coordinated with Lisa Guerrier PA-C Labs and images reviewed This is a 39-year-old male, presented to ER with severe left lower extremity pain, started 2 days back worse this morning, associated with shortness of breath dizzy spell, diaphoresis, presyncope Patient denies of any recent immobility, no long duration trip, Fairly active at baseline CTA of chest shows no evidence of pulmonary embolism Lower extremity Doppler: Extensive left lower extremity DVT with complete occlusion of left femoral artery to the left calf veins. Patient was hypotensive, tachycardic in the ER, required IV fluid bolus Physical exam: As per Cele Guerrier, GHAZALA Hypercoagulable work-up was sent: Patient had a prior history of DVT on right leg, not on any anticoagulation at present other than 81 mg daily aspirin Discussed with on-call interventional cardiology: Dr. Torito Gibson: Receiving a lower extremity Doppler image, he recommends transfer to tertiary care for emergent thrombectomy, high risk for gangrene,/loss of limb without emergent treatment ER physician Dr. De Souza updated, Patient is being transferred to tertiary care, [facility] Ximena Justice MD 06/23/2020, 1:59PM, doing fine, advance diet, continue treatment, will F/U Dr. Delgado 06/24/2020, 11:59AM doing fine, pt can be discharged from surgical point, F/U his surgeon in next week, Subjective Resting comfortably in the bed, no shortness of breath, is improved almost settled now. Urine output continues to be good. Physical Exam Constitutional: WD/WN, vitals as above well developed and well nourished Eyes: PERRL, conjunctivae normal, anicteric sclerae ENMT: external ear and nose normal, oropharynx normal Neck: trachea midline, no thyromegaly Respiratory: normal respiratory effort, lungs clear to auscultation Cardiovascular: RRR, no murmur, no edema Rate/Rhythm: regular rate and regular rhythm Gastrointestinal (Abdomen): normal bowel sounds, soft, nontender, no hepatosplenomegaly Musculoskeletal: no cyanosis or clubbing, extremities motor strength 5/5 Skin: no rashes, warm and dry Neurologic: awake Psychiatric: Orientation: alert and oriented x 3 Results & Data ([facility]) Vital Signs (Past 12 Hours) Vital Signs Temp Pulse Pulse Resp BP Pulse Ox 06/24/20 08:00 36.6 C 84 20 122/76 97 06/24/20 04:26 36.4 C L 82 18 123/78 98
--- NOTE | 2020-06-24 13:28 | Hospitalist Progress Note ---
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: Present on admission with LLE pain, swelling and cyanosis Left lower extremity extensive DVT Prior history of DVT at age 15 Ultrasound of Doppler showed extensive DVT leading to complete thrombosis of left common femoral vein Ultrasound of inferior vena cava shows chronic thrombosis extending to left common iliac and left common femoral, normal flow on the right iliac vein Hypercoagulable work-up pending CTA of the chest shows no evidence of PE Echocardiogram shows normal LV function, hyperdynamic LV suggestive of volume depletion Continue IV heparin drip Lower extremity pain swelling and cyanosis improved after IV fluid resuscitation and IV heparin Vascular surgery on board recommended to continue anticoagulant and lifelong thigh high compression therapy No indications for vascular surgical intervention at this time. Patient will need lifelong anticoagulation Discussed warfarin and DOAC with patient in detail heparin drip was discontinued last night ad transition to eliquis Continue eliquis Hypercoagulable work up positive for Factor V leiden mutation (heterozygous) Patient will need hematology follow-up for severe coagulopathy as an outpatient (3) Appendicitis: (4) Sepsis: Met criteria for sepsis on admission, admitted with tachycardia hypotension, elevated lactic acid, leukocytosis 20 K Possible related to acute appendicitis CT abd/plevis showed inflamed appendix with inflammation/phlegmon within the abdominal right lower quadrant. Findings are concerning for acute appendicitis with possible rupture Received IVF and IV antibiotic with Zosyn and vanco. vanco was discontinued ID on board that recommended to continue IV zosyn, once pt is able to tolerate PO, will transition to PO flagyl and cipro renal dose until removal of the appendix Repeat CT done today showed Findings consistent with perforated acute appendicitis with no significant change in periappendiceal infiltration/phlegmon. No drainable abscess. Interval development of a tiny periappendiceal gas and fluid containing collection consistent with a tiny periappendiceal abscess. Case discussed with surgery recommended conservative management with IV abx case discussed with ID at [facility] that recommended to transition to PO flagyl and cipro, but since surgery would like pt to stay on IV abx, we will have to continue on Zosyn Duration of the abx will be dependent on when surgery will be schedule for the appendix removal case management checked for the cost for the Zosyn, it will be about $1000 for 30 days Case discussed with surgery Dr. Nance about the cost of the abx if continues with the IV Zosyn vs the cipro/flagyl. Surgery agreed with the Cipro and flagyl PO on discharge, will continue abx until appendix removal Continue monitor CBC and BMP while on abx Tolerated low fiber diet Follow up with Surgery on Tuesday 06/26 @ 10:30 AM at [facility] with Dr. 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 But Avoid IV contrast Stable from nephrology standpoint Follow up with nephrology outpatient Diarrhea Stool for Cdiff negative Continue monitor electrolytes diarrhea improves CODE STATUS: Full code DVT prophylaxis: On qu Disposition Will discharge home today Follow up with surgery Dr. Delgado on 06/26 at 10:30 Follow up with your PCP Dr. Ceron on 07/02 @ 10:55 AM Admission and Anticipated Discharge Date Admission Date: June 18, 2020 Subjective Pt was seen and examined Lying in bed with no distress Pt said that he tolerated his diet Continue to be very anxious Denies any chest pain, palpitation, dizziness and SOB Physical Exam Physical Exam: General- No acute distress Head- atraumatic Eyes- PERRL, EOMI, ENT- oropharynx clear Neck- supple, no JVD Lungs- clear to auscultation Heart- regular rhythm; no murmur Abdomen- normal bowel sounds, soft, nontender Extremities- no calf tenderness, +edema LLE Neuro- alert, oriented x 3; PERRL, EOMI; no facial palsy; no dysarthria Skin- warm & dry Results & Data Results & Data ([facility]) Vital Signs (Past 12 Hours) Vital Signs Temp Pulse Pulse Resp BP Pulse Ox 06/24/20 12:00 37 C 76 18 111/74 97 06/24/20 08:00 36.6 C 84 20 122/76 97 06/24/20 04:26 36.4 C L 82 18 123/78 98 (1) Deep vein thrombosis (DVT) of left lower extremity Affected thrombotic vein of extremity: unspecified vein of extremity Chronicity: acute Qualified Code(s): I82.402 - Acute embolism and thrombosis of unspecified deep veins of left lower extremity (2) Appendicitis Acute appendicitis type: unspecified acute appendicitis type Appendicitis type: acute appendicitis Qualified Code(s): K35.80 - Unspecified acute appendicitis
[2020-06-24] MEDS ORDERED: CIPROFLOXACIN 500 MG TAB PO SCH (13:45)
[2020-06-24] MEDS ORDERED: metroNIDAZOLE 500 MG TAB PO SCH (14:00)
--- NOTE | 2020-06-25 08:56 | Discharge Summary ---
Date of Service June 24, 2020 Admission HPI Per Admitting Provider Requesting Physician: Dr. De Souza Reason for Consultation: Admission to hospital Attending Physician: Dr. Justice History of Present Illness This is a 39 yr old M who has a significant PMN of renal agenesis, hx of glomerulonephritis with ckd-3 baseline cr 1.6-1.7 followed by [facility] nephrology, gout, JOHN, hx of DVT at age 15 who presents to ED 2/2 to worsened LLE pain with concern for DVT x 2 days. Of significance pt recently dx and tx for cdiff colitis on 06/06/20. He has been experiencing lower abdominal cramping, waxes and wanes, 6/10 at worst, & described as "ache." He was seen and evaluated by PCP who recommended GI evaluation. He underwent EGD and colonoscopy which revealed findings consistent with GERD. Cultures were positive for C. difficile. He started treatment on 06/06/2020 with oral vancomycin 125 mg 4 times daily and completed course yesterday 06/17/2020. He states during treatment with vancomycin his symptoms began to improve, until Thursday after he ate a heavy garlic meal. He then developed return of bilateral lower abdominal cramping, waxes and wanes, intermittent, nothing in particular makes worse and resolved on own. He notes on Thursday he began developing some weakness to his left lower extremity which he attributed to his recent C. difficile illness. Weakness turned into discomfort which began progressing to left calf. When he woke up this morning he was sweaty, diaphoretic, ill feeling, short of breath and significant left lower extremity pain with inability to bear weight. He proceeded to seek ED for further evaluation. According to ED provider upon initial arrival patient was hypotensive and tachycardic and was sent immediately to CTA to rule out PE. CTA was negative however left lower extremity venous Doppler reveals extensive DVT extending from common femoral vein to proximal calf vein. Further lab work-up revealed lactic acidosis at 2.5, leukocytosis 20.64k, H&H 13.5 and 41.6, AG 13, BUN 21, creatinine 2.2, procalcitonin 0.15. Prior to my evaluation pt did receive 1L IVF. is at bedside. Admission Exam Per Admitting Provider Constitutional: Pale, acutely ill appearing male, vitals as above, NAD, sitting up in bed, pleasant, conversing easily Head: Normocephalic, Atraumatic Eyes: PERRL, conjunctivae normal, anicteric sclerae ENMT: external ear and nose normal, oropharynx normal Neck: trachea midline, no thyromegaly normal visual inspection Respiratory: normal respiratory effort, lungs clear to auscultation, no wheeze, rales, rhonchi. Normal insp/exp effort, no accessory muscle use Cardiovascular: RRR, no murmur Vessels: no JVD or carotid bruit, LLE edematous, dusky, cyanotic with mottled appearance, cool, diminished pedal pulse, RLE with compression sleeve to calf Chest: normal inspection of chest Abdomen: normal bowel sounds, soft, tender to palpation b/l lower quadrants, no rebound/guarding or rigidity, no hepatosplenomegaly Musculoskeletal: no clubbing, active ROM to extremities x4 Skin: no rashes, warm and dry normal turgor Neurologic: PERRL, EOMI, accommodation nl, no face palsy, no dysarthria CN's II-XI intact bilaterally and moves all extremities Psychiatric: A+Ox3, euthymic affect Lymphatic: no cervical or axillary lymphadenopathy : deferred Principal Diagnosis (1) Deep vein thrombosis (DVT) of left lower extremity: (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: (3) Appendicitis: (4) Sepsis: (5) Acute renal failure with CKD stage III Discharge Exam General- No acute distress Head- atraumatic Eyes- PERRL, EOMI, ENT- oropharynx clear Neck- supple, no JVD Lungs- clear to auscultation Heart- regular rhythm; no murmur Abdomen- normal bowel sounds, soft, nontender Extremities- no calf tenderness, +edema LLE Neuro- alert, oriented x 3; PERRL, EOMI; no facial palsy; no dysarthria Skin- warm & dry Discharge Data Allergies Allergy/AdvReac Type Severity Reaction Status Date / Time NSAIDS (Non-Steroidal AdvReac Severe CANNOT Unverified 06/18/20 08:53 Anti-Inflamma TAKE DUE TO KIDNEY PROBLEMS Consultations 06/18/20 09:43 ED Decision to Admit Stat 06/18/20 09:47 Consult Vascular Surgery Stat 06/18/20 12:54 Consult General Surgery Stat 06/18/20 12:57 Consult Case Management - Discharge Planning Routine Consult Artillery Specialist Routine 06/18/20 13:08 Consult Infectious Diseases Routine 06/18/20 15:33 Consult Case Management - Discharge Planning Routine Consult Nephrology Routine Ordered Studies 06/18/20 08:09 US venous doppler LE LT Stat 06/18/20 08:10 CT angio chest PE protocol Stat 06/18/20 10:18 CT abd pelvis wo con Stat 06/18/20 11:10 US duplex aorta/iliacs/IVC ltd Stat 06/21/20 09:00 CT abd pelvis oral con only Urgent CT OF THE ABDOMEN AND PELVIS WITH ORAL CONTRAST CLINICAL HISTORY: h/o appendicitis/ phlegmon COMPARISON STUDY: CT of the abdomen and pelvis June 18, 2020. TECHNIQUE: Axial images of the abdomen and pelvis were obtained without IV contrast. Oral contrast was administered. Automated exposure control was utilized for the study. A dose lowering technique was utilized adhering to the principles of ALARA. FINDINGS: Lung bases are unremarkable. Evaluation of the abdomen and pelvis is suboptimal on this unenhanced examination. The liver, spleen, adrenal glands, left kidney and pancreas are unremarkable. Right kidney is markedly atrophic. Multiple mildly enlarged retroperitoneal lymph nodes are unchanged since prior examination. Index aortocaval lymph node on image 257 measures 2.1 x 1.9 cm. Index left common iliac node on image 289 measures 1.8 x 1.6 cm. Note is made of increased attenuation and mild distention of the left external iliac, internal iliac, common femoral and superficial femoral veins which represents deep venous thrombus as shown on prior ultrasound. Left thigh infiltration has increased since prior CT. IVC is diminutive. This is likely chronic. Extensive collaterals within the abdominal wall are again noted. There is no evidence for a bowel obstruction. The appendix is dilated as before. There is extensive periappendiceal infiltration and a small amount of fluid. No drainable abscess is present. Note is made of a 1.4 cm periappendiceal gas and fluid containing collection. This represents a tiny periappendiceal abscess. A few additional adjacent locules of gas may be extraluminal. This represents a contained perforation. Wall thickening of the distal ileum is again noted. This is likely reactive. IMPRESSION: 1. Findings consistent with perforated acute appendicitis with no significant change in periappendiceal infiltration/phlegmon. No drainable abscess. Interval development of a tiny periappendiceal gas and fluid containing collection consistent with a tiny periappendiceal abscess. Otherwise, unchanged appearance since prior exam. 2. Evidence for extensive deep venous thrombus within the left external iliac, common iliac, common femoral and superficial femoral veins, as shown on prior ultrasound. Increase in associated left thigh infiltration. 3. Mild retroperitoneal lymphadenopathy which is indeterminate although probably benign. A follow-up CT in 6 months could be obtained. ACT 112: Negative or not required by law. Electronically signed by: Rosalio Prather M.D. 06/21/2020 10:26 AM Dictated: 06/21/20 1010 Transcribed: 06/21/[address] WITHOUT CONTRAST CT DOSE: 1130.52 mGycm HISTORY: Acute low back pain. back pain /ext DVT on lower ext /r/o malignancy TECHNIQUE: Multiaxial CT images of the abdomen and pelvis were performed without contrast. A dose lowering technique was utilized adhering to the principles of ALARA. COMPARISON STUDY: Duplex venous Doppler study and CTA chest of same day FINDINGS: The imaged lung bases are generally clear. 5 mm subpleural solid nodule involves the lateral segment right middle lobe. No pneumatosis or pneumoperitoneum. Imaged inferior cardiac chambers are unremarkable. Limited evaluation of the solid abdominal organs without the use of IV contrast. The spleen, pancreas and right adrenal gland are unremarkable. Minimal calcifications of the left adrenal gland suggests prior hemorrhage or infection. Mild retained contrast in the left renal collecting system. There are a few shailesh ical renal sinus cysts of the left kidney. Partially decompressed or bladder contains contrast. Unremarkable prostate. Markedly atrophic right kidney. Calcification within a diminutive IVC. Numerous retroperitoneal collaterals are noted with additional collateral vessels of the anterior abdominal wall. Collateral vessels versus retroperitoneal adenopathy measures up to 3.0 x 1.9 cm on image 268 series 3. No bowel obstruction. Moderate fecal retention. Wall thickening of the terminal ileum. The appendix is dilated measuring up to 2.4 cm and is markedly inflamed. Phlegmonous change with reactive edema is noted within the abdominal right lower quadrant overall measuring up to approximately 5.2 cm. Unremarkable soft tissues. The bones appear intact. IMPRESSION: 1. Markedly inflamed appendix with inflammation/phlegmon within the abdominal right lower quadrant. There is no pneumoperitoneum or drainable fluid collection identified. Findings are concerning for acute appendicitis with possible rupture. An appendiceal neoplasm could have a similar appearance. Surgical consultation is needed. 2. Wall thickening of the distal ileum is likely reactive. 3. 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 Additionally, there is suggestion of indeterminate retroperitoneal adenopathy. Attention at follow-up recommended. 4. Markedly atrophic right kidney. 5. Moderate fecal retention. ACT 112: Negative or not required by law. The above report was generated using voice recognition software. It may contain grammatical, syntax or spelling errors. Electronically signed by: Roscoe Smith M.D. 06/18/2020 11:18 AM Dictated: 06/18/201052 Transcribed: 06/18/201052 Addendum: 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 Electronically signed by: Terrance Knott M.D. 06/18/2020 9:[address] ANGIOGRAM OF THE CHEST CLINICAL HISTORY: Atypical chest pain. History of DVT. Possible pulmonary embolism COMPARISON STUDY: No previous studies for comparison. TECHNIQUE: Following the IV administration of 118 mL of Optiray-320, CT angiogram of the thorax was performed from the thoracic inlet to the lung bases utilizing the pulmonary embolus protocol. Images are reviewed in the axial, sagittal, and coronal planes. IV contrast was administered without complication. MIP imaging was performed. A dose lowering technique was utilized adhering to the principles of ALARA. CT DOSE: 690.04 mGy.cm FINDINGS: No pathologically enlarged axillary mediastinal or hilar lymph nodes were visualized. There was no evidence of thoracic aortic dilatation. There are no definite pulmonary artery filling defects to indicate acute pulmonary embolism. Evaluation of the left lower lobe pulmonary artery branches are moderately limited due to respiratory motion artifact. No pleural effusions are visualized. There was no evidence of focal pulmonary consolidation. There are a few scatt ered granulomatous calcifications IMPRESSION: 1. Motion degraded study 2. No evidence of acute pulmonary embolism given the clinical limitations of the study 2. No evidence of acute parenchymal consolidation ACT 112: Negative or not required by law. Electronically signed by: Terrance Knott M.D. 06/18/2020 8:27 AM Dictated: 06/18/20823 Transcribed: 06/18/20823 US venous doppler LE LT CLINICAL HISTORY: Left leg pain. Chest pain. CT angiography the chest limited due to motion artifact COMPARISON STUDY: No previous studies for comparison. FINDINGS: There is extensive left lower extremity DVT extending from the common femoral vein to the calf. IMPRESSION: Extensive left lower extremity DVT extending from the common femoral vein to the proximal calf veins. ACT 112: Negative or not required by law. Electronically signed by: Terrance Knott M.D. 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: Present on admission with LLE pain, swelling and cyanosis Left lower extremity extensive DVT Prior history of DVT at age 15 Ultrasound of Doppler showed extensive DVT leading to complete thrombosis of left common femoral vein Ultrasound of inferior vena cava shows chronic thrombosis extending to left common iliac and left common femoral, normal flow on the right iliac vein Hypercoagulable work-up pending CTA of the chest shows no evidence of PE Echocardiogram shows normal LV function, hyperdynamic LV suggestive of volume depletion Continue IV heparin drip Lower extremity pain swelling and cyanosis improved after IV fluid resuscitation and IV heparin Vascular surgery on board recommended to continue anticoagulant and lifelong thigh high compression therapy No indications for vascular surgical intervention at this time. Patient will need lifelong anticoagulation Discussed warfarin and DOAC with patient in detail heparin drip was discontinued last night ad transition to eliquis Continue eliquis Hypercoagulable work up positive for Factor V leiden mutation (heterozygous) Patient will need hematology follow-up for severe coagulopathy as an outpatient (3) Appendicitis: (4) Sepsis: Met criteria for sepsis on admission, admitted with tachycardia hypotension, elevated lactic acid, leukocytosis 20 K Possible related to acute appendicitis CT abd/plevis showed inflamed appendix with inflammation/phlegmon within the abdominal right lower quadrant. Findings are concerning for acute appendicitis with possible rupture Received IVF and IV antibiotic with Zosyn and vanco. vanco was discontinued ID on board that recommended to continue IV zosyn, once pt is able to tolerate PO, will transition to PO flagyl and cipro renal dose until removal of the appendix Repeat CT done today showed Findings consistent with perforated acute appendicitis with no significant change in periappendiceal infiltration/phlegmon. No drainable abscess. Interval development of a tiny periappendiceal gas and fluid containing collection consistent with a tiny periappendiceal abscess. Case discussed with surgery recommended conservative management with IV abx case discussed with ID at [facility] that recommended to transition to PO flagyl and cipro, but since surgery would like pt to stay on IV abx, we will have to continue on Zosyn Duration of the abx will be dependent on when surgery will be schedule for the appendix removal case management checked for the cost for the Zosyn, it will be about $1000 for 30 days Case discussed with surgery Dr. Nance about the cost of the abx if continues with the IV Zosyn vs the cipro/flagyl. Surgery agreed with the Cipro and flagyl PO on discharge, will continue abx until appendix removal Continue monitor CBC and BMP while on abx Tolerated low fiber diet Follow up with Surgery on Tuesday 06/26 @ 10:[address] [facility] with Dr. 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 But Avoid IV contrast Stable from nephrology standpoint Follow up with nephrology outpatient Diarrhea Stool for Cdiff negative Continue monitor electrolytes diarrhea improves CODE STATUS: Full code DVT prophylaxis: On Eliquis Disposition Will discharge home today Follow up with surgery Dr. Delgado on 06/26 at 10:30 Follow up with your PCP Dr. 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 Ceron on 07/02 @ 10:55 AM Follow up with surgery Dr. Delgado on 06/26 @ 10:30 AM Follow up with nephrology to monitor your kidney function Will will need outpatient hematology follow-up coagulopathy (Your primary care provider will refer you) Continue antibiotic with ciprofloxacin twice a day and flagyl three times a day (Continue until the appendix removes) Continue lifelong thigh high compression therapy (Do not sleep with them) Check CBC and BMP in 1 week (Your provider will order them) Seek medical attention if your symptoms worsening (fever, severe abdominal pain, vomiting,...) Fall precaution Since you are on blood thinner, please monitor for any abnormal bleeding (such blood in your stool, urine, ...) Continue Eliquis 10mg twice a day for 5 more days, then continue 5mg twice a day Medication Instructions: Eliquis Your condition is typically treated with an anticoagulant. Anticoagulants will thin your blood to help prevent new clots. You should take her medication exactly as directed. Never skip a dose. Never take a double dose. If you miss a dose, take it as soon as you remember. Avoid NSAIDs (Motrin, Aleve, Naproxen, Ibuprofen, Advil, Meloxicam,..) due to risks of bleeding Call your Primary Care doctor if you experience any of the following: Swelling or Pain in your leg Sudden, continuous pain deep in a muscle Pain that worsens when you are active or when you stand still for a long time Chest Pain Sudden Shortness of Breath Rapid or pounding heart beat Fainting Dizziness Cough with blood or bloody sputum Sweating more than normal Bruises Heavy or uncontrolled bleeding Blood in your urine, stool or vomit Black or tarry stools Caring for Your Self at Home: Avoid sitting, standing or lying down for long periods without moving your legs and feet When traveling by car, stop to get out and move around at least once every 3 hours On long airplane, train or bus rides, get up and move around when possible If you can't get up, wiggle your toes and tighten your calves to keep your blood moving Pending Studies at Discharge: No Stand-Alone Forms: My [employer], Smoking Cessation Medications and DC Order Prescriptions: New ciprofloxacin HCl 500 mg Tablet 500 mg PO BID 30 Days Qty: 60 RF: 0 metronidazole 500 mg Tablet 500 mg PO TID 30 Days Qty: 90 RF: 0 Eliquis 5 mg (74 tabs) tablets,dose pack 5 mg PO UD Qty: 74 RF: 0 Continued aspirin 81 mg Tablet,Delayed Release (Dr/Ec) 81 mg PO QAM RF: 0 diltiazem HCl 120 mg capsule,extended release 24hr 120 mg PO QAM RF: 0 allopurinol 300 mg tablet 300 mg PO QAM RF: 0 loratadine 10 mg Tablet 10 mg PO QAM RF: 0 Discharge Orders: Discharge Order (Routine); Ordered 06/24/20 Ordered By: Cezar Gill Admission Data Admit Date/Time: 06/18/20 13:07 Attending Provider: Cezar Gill Admit Provider: Elvia Justice Primary Care Provider: Juany Ceron Other Providers: Elvia Justice ; Quan Nichols ; Jorge Nance ; Levy Diaz ; Alexx Moya ; Erwin Smiley ; Benny Cleveland I. ; Osmar Sanchez II ; Liat Hinton ; Samy Franklin ; Karissa Amaya Other Interventions: Discharge Summary Assessment (RN) Last Done: 06/24/20 15:13
== END 2020-06-24 16:05 | disposition home or self-care (01) | DRG 872 ==
LOC: ED 07:50 → 1E 13:07 → SUATTDRO 13:07 → 1E 15:02 → 2S 06-19 09:57